=== PATIENT | female | born 1960 | race Caucasian/White ===

== ENCOUNTER → 2016-05-08 | Outpatient (CLI) | payer BC ==
[~2016-05-08] MED LIST: ADAL40KI SC; ASPI81TA28 PO; CHOL100010 PO; CHOL2000 PO; GABA-112 PO; IBUP-1459 PO; MELO7.5T5 PO; PRED1SUS17 OPL; PRED20TA PO; ROSU10TA35 PO; TRAM-10 PO
--- NOTE | 2016-05-08 11:24 | DIAGNOSTIC IMAGING REPORT ---
CT OF THE ABDOMEN AND PELVIS WITH CONTRAST CLINICAL HISTORY: Abnormal liver function tests. Right upper quadrant abdominal pain. COMPARISON STUDY: CT of the abdomen and pelvis August 26, 2010 and abdominal ultrasound April 21, 2015 TECHNIQUE: Following IV administration of 119 mL of Optiray-320, axial images of the abdomen and pelvis were obtained from the lung bases to the proximal femurs. Images were reviewed in the axial, sagittal, and coronal planes. IV contrast was administered without complication. Oral contrast was administered. CT DOSE: 638.49 mGy.cm FINDINGS: A 3 mm right lower lobe nodule is unchanged since CT of October 07, 2008. There is fatty infiltration of the liver. There is no biliary ductal dilatation status post cholecystectomy. The spleen, right adrenal gland and right kidney are unremarkable. A cyst within the upper pole the left kidney is decreased in size. A 1.3 cm left adrenal nodule is unchanged. This represents an adenoma. Caliber and wall thickness of small and large bowel are normal. The appendix is surgically absent. There is no lymphadenopathy or ascites. There is a tiny fat-containing umbilical hernia. No significant skeletal abnormalities are identified. IMPRESSION: 1. No acute process within the abdomen or pelvis. 2. Fatty liver. 3. No biliary ductal dilatation status post cholecystectomy. Electronically signed by: James Fletcher M.D. 05/08/2016 11:22 AM
== END | disposition home or self-care (01) ==
LOC: C.CTS 09:58
PROVIDERS: ATTEND Internal Medicine
DX: R10.11 Right upper quadrant pain (principal); R79.89 Other specified abnormal findings of blood chemistry; K76.0 Fatty (change of) liver, not elsewhere classified

== ENCOUNTER → 2016-08-08 | Outpatient (CLI) | payer BC ==
[~2016-08-08] MED LIST changes: +ROSU10TA24 PO; -ROSU10TA35 PO
[2016-08-08 13:15] LABS: ALKALINE PHOSPHATASE 70 U/L (45-117); ALT/SGPT 68 U/L (12-78); AST/SGOT 36 U/L (15-37); C-REACTIVE PROTEIN 0.58 mg/dl (0-0.29)
== END | disposition home or self-care (01) ==
LOC: C.LAB1850 11:55
PROVIDERS: ATTEND Internal Medicine Rheumatology
DX: M45.9 Ankylosing spondylitis of unspecified sites in spine (principal)

== ENCOUNTER → 2016-08-30 | Outpatient (CLI) | payer BC ==
[2016-08-30 11:32] LABS: CHOLESTEROL/HDL RATIO 7.2; THYROID STIMULATING HORMONE 1.82 uIu/ml (0.300-4.500)
== END | disposition home or self-care (01) ==
LOC: C.LABBC 08:53
PROVIDERS: ATTEND Internal Medicine
DX: E78.5 Hyperlipidemia, unspecified (principal)

== ENCOUNTER → 2016-09-04 | Outpatient (CLI) | payer BC | END | disposition home or self-care (01) | LOC: C.PAPS 11:44 | PROVIDERS: ATTEND Obstetrics & Gynecology | DX: Z01.419 Encounter for gynecological examination (general) (routine) without abnormal findings (principal); Z87.891 Personal history of nicotine dependence ==

== ENCOUNTER 2016-11-16 11:04 | Emergency (ER) | payer BC ==
[~2016-11-16] VITALS: Ht 172.7 cm; Wt 89.5 kg
[~2016-11-16 11:04] MED LIST changes: -ADAL40KI SC; -CHOL2000 PO; -PRED20TA PO; -ROSU10TA24 PO; -TRAM-10 PO
[2016-11-16 11:08] VITALS: TEMP 36.8; Ht 172.7 cm; Wt 89.5 kg
[2016-11-16] MEDS ORDERED: ADAL40KI SC (11:18)
[2016-11-16] MEDS ORDERED: CHOL2000 PO (11:19)
[2016-11-16] MEDS ORDERED: ROSU10TA24 PO (11:20)
[2016-11-16] MEDS ORDERED: HYDROmorphone INJ 0.5 MG/0.5 ML SYR IV STA (11:29)
[2016-11-16] MEDS ORDERED: ONDANSETRON INJ 2 MG/ML 2 ML VIAL IV STA ×2 (11:29→13:05)
[2016-11-16 12:05] LABS: BASO % 0.3 %; BASO ABS # 0.02 K/uL (0-0.2); COMPLETE YES; EOS % 2.6 %; IG% 0.3 %; LYMPH % 26.6 %; LYMPH ABS # 2.05 K/uL (1.2-3.4); MEAN CELL VOLUME 86.4 fL (80-100); MEAN CORPUSCULAR HEMOGLOBIN 28.8 pg (25-34); MEAN CORPUSCULAR HGB CONC 33.3 g/dl (32-36); MONO % 4.8 %; NEUT % 65.4 %; PLATELET COUNT 233 K/uL (130-400); RED BLOOD COUNT 4.86 M/uL (4.2-5.4); WHITE BLOOD COUNT 7.71 K/uL (4.8-10.8)
[2016-11-16 12:30] LABS: ALT/SGPT 45 U/L (12-78); AST/SGOT 20 U/L (15-37); BLOOD UREA NITROGEN 11 mg/dl (7-18); BUN/CREATININE RATIO 19.8 (10-20); CALCIUM 8.7 mg/dl (8.5-10.1); CARBON DIOXIDE 24 mmol/L (21-32); CHLORIDE 108 mmol/L (98-107); CREATININE 0.57 mg/dl (0.60-1.20); GLUCOSE 113 mg/dl (70-99); POTASSIUM 3.8 mmol/L (3.5-5.1); SODIUM 141 mmol/L (136-145); URIC ACID 4.9 mg/dl (2.6-7.2)
[2016-11-16 12:41] LABS: ALKALINE PHOSPHATASE 61 U/L (45-117); RHEUMATOID FACTOR < 10.0 U/mL (0-15)
[2016-11-16 12:43] LABS: ANTI-STREP O SCR: 5YRS OR > POS IU/ml (<200 IU)
--- NOTE | 2016-11-16 12:48 | DIAGNOSTIC IMAGING REPORT ---
C-SPINE ROUTINE 4 OR 5 VIEWS CLINICAL HISTORY: 55 years-old Female presenting with neck pain, no trauma. TECHNIQUE: Frontal, lateral, bilateral oblique, and open-mouth odontoid views of the cervical spine were obtained. COMPARISON: None. FINDINGS: The C6 vertebral body is the last fully visualized level, limiting evaluation. Straightening of normal cervical lordosis, which may be positional. Vertebral body heights and intervertebral disc spaces preserved. Normal predental interval. Lateral masses of C1 articulate normally with C2. No subluxation or acute fracture is radiographically evident. No prevertebral soft tissue swelling. No osseous neural foraminal or spinal canal narrowing. IMPRESSION: 1. No degenerative change or radiographic evidence of acute osseous injury. Electronically signed by: Robbin Chang M.D. 11/16/2016 12:46 PM Dictated Date/Time: 11/16/2016 12:44 PM
--- NOTE | 2016-11-16 12:49 | DIAGNOSTIC IMAGING REPORT ---
CHEST 2 VIEWS ROUTINE CLINICAL HISTORY: neck and shoulder pain pain COMPARISON STUDY: 02/10/2014 FINDINGS: The bones soft tissues and hemidiaphragms are normal. The cardiomediastinal silhouette is normal. The lungs are clear. The pulmonary vasculature is normal. IMPRESSION: Negative chest. Electronically signed by: Myron Chun M.D. 11/16/2016 12:48 PM Dictated Date/Time: 11/16/2016 12:48 PM
--- NOTE | 2016-11-16 12:50 | DIAGNOSTIC IMAGING REPORT ---
RIGHT KNEE 1 OR 2 VIEWS ROUTINE CLINICAL HISTORY: right knee swelling and pain, no trauma Right pain COMPARISON: None. DISCUSSION: The bones and joint spaces appear intact. There is no evidence of fracture, dislocation or bony disease. Degenerative osteophytic change from the superior patella rib no significant joint effusion IMPRESSION: Mild degenerative osteophytic change. Otherwise negative study. No acute process. Electronically signed by: Myron Chun M.D. 11/16/2016 12:49 PM Dictated Date/Time: 11/16/2016 12:48 PM
[2016-11-16] MEDS ORDERED: FENTANYL CITRATE INJ 50 MCG/1 ML 2 ML VIAL IV STA (13:05)
[2016-11-16] MEDS ORDERED: KETOROLAC TROMETHAMINE 30 MG/ML VIAL IV STA (13:05)
[2016-11-16 13:33] LABS: LYME DISEASE AB IGG NEG (NEG)
[2016-11-16 13:35] LABS: LYME DISEASE AB IGM NEG (NEG)
[2016-11-16 14:12] LABS: ANTI-STREP O TITRE: 5YR OR > 400 IU/ml (<200 IU)
[2016-11-16] MEDS ORDERED: TRAM-10 PO (14:43)
[2016-11-16] MEDS ORDERED: PRED20TA PO ×2 (14:43→14:47)
[2016-11-16 15:17] VITALS: BP 102/58; PULSE 79; O2SAT 99
--- NOTE | 2016-11-16 15:54 | EMERGENCY ROOM VISIT NOTE ---
History Report prepared by Bo: Antonio Oconnor Under the Supervision of: Dr. Mehrdad Badillo M.D. First contact with patient: 11:15 Chief Complaint: KNEEPAIN Stated Complaint: SWELLING/PAIN TO R KNEE, NECK,ARMS,FEET,BACK,LEGS History of Present Illness The patient is a 55 year old female who presents to the Emergency Room with complaints of worsening generalized pain that started last week. She rates her discomfort as a 7/10 in severity. She states that her symptoms started last week when she started to experience pain in her upper arm radiating to her shoulders, neck, and back. The patient reports that the pain is so severe that she is unable to lift her arms causing her to not be able to hold the top of the steering wheel. She also reports she has been experiencing increased foot ankle pain. The patient reports a history of ankylosis spondylitis and neuropathy, which she states usually only causes lower back pain. The patient states that she has a history of carpal tunnel, which has been flaring up due to her increased work load at work. She reports knee pain, which she follows up with Dr. Hancock for, which worsened last night. The patient states that the swelling and pain caused her to call Dr. Hancock yesterday when she told the patient to increase her Ibuprofen intake. The patient states that the increased Ibuprofen, which she took three this morning at 0800, and Humira has helped relieve some symptoms. She admits that she has had steroid shots for her knee issues in the past, but has not had any for months. She states that she has an appointment today later today at [address] Zendejas. The patient admits to a history of an appendectomy and cholecystectomy. The patient denies any injury , falling, LOC, headache, fevers, chills, diaphoresis, visual changes, chest pain, breathing difficulties, nausea, vomiting, abdominal pain, melena, hematochezia, urinary symptoms, numbness, weakness, lymphadenopathy, rash, or other complaints. Source of History: patient Onset: a week ago Position: other (global) Symptom Intensity: 7/10 Timing: worsening Modifying Factors (Relieving): ibuprofen, other (Humira) Associated Symptoms: + neck pain, + back pain Review of Systems See HPI for pertinent positives and negatives. A total of ten systems were reviewed and were otherwise negative. Past Medical & Surgical Medical Problems: (1) Asthma, Unspecified (2) Hyperlipidemia Nec/Nos Surgical Problems: (1) Hx of appendectomy (2) Hx of cholecystectomy Family History Cancer Diabetes mellitus Gallbladder disease Heart disease Hypertension Kidney disease Kidney stones Stroke Social History Smoking Status: Former Smoker Smokeless Tobacco Use: No Alcohol Use: none Drug Use: none Marital Status: in relationship Housing Status: lives with significant other Occupation Status: employed Current/Historical Medications Scheduled Adalimumab (Humira Pen), 40 MG SC Q14D Cholecalciferol (Vitamin D3), 1 CAP PO DAILY Prednisone (Prednisone), 20 MG PO DAILY Rosuvastatin Calcium (Rosuvastatin Calcium), 1 TAB PO HS Scheduled PRN Ibuprofen (Motrin), 400 MG PO DIRECTED PRN for Pain Tramadol (Ultram), 1-2 TAB PO Q6 PRN for Pain Allergies Coded Allergies: Diphenhydramine (Unverified Allergy, Unknown, ITCHING, 11/16/16) Physical Exam Vital Signs Date Time Temp Pulse Resp B/P (MAP) Pulse Ox O2 Delivery O2 Flow Rate FiO2 11/16/16 15:17 79 16 102/58 99 11/16/16 14:28 80 20 103/54 95 Room Air 11/16/16 13:07 86 20 129/87 94 Room Air 11/16/16 12:46 82 11/16/16 11:08 36.8 110 17 123/86 99 Room Air Physical Exam GENERAL: Awake, alert, well-appearing, in no distress HENT: Normocephalic, atraumatic. Oropharynx unremarkable. EYES: Normal conjunctiva. Sclera non-icteric. NECK: Supple. No nuchal rigidity. FROM. No JVD. RESPIRATORY: Clear to auscultation. CARDIAC: Regular rate, normal rhythm. Extremities warm and well perfused. Pulses equal. ABDOMEN: Soft, non-distended. No tenderness to palpation. No rebound or guarding. No masses. RECTAL: Deferred. MUSCULOSKELETAL: Chest examination reveals no tenderness. The back is symmetrical on inspection without obvious abnormality. There is no CVA tenderness to palpation. No joint edema. LOWER EXTREMITIES: Swelling to superior, lateral aspect of right knee. Range of motion is limited secondary to pain. No erythema or warmth. MCL and LCL are normal. Negative Yajaira. Calves are equal size bilaterally and non-tender. No edema. No discoloration. NEURO: Normal sensorium. No sensory or motor deficits noted. SKIN: No rash or jaundice noted. Medical Decision & Procedures ER Provider Diagnostic Interpretation: Radiology results as stated below per my review and radiologist interpretation: RIGHT KNEE 1 OR 2 VIEWS ROUTINE CLINICAL HISTORY: right knee swelling and pain, no trauma Right pain COMPARISON: None. DISCUSSION: The bones and joint spaces appear intact. There is no evidence of fracture, dislocation or bony disease. Degenerative osteophytic change from the superior patella rib no significant joint effusion IMPRESSION: Mild degenerative osteophytic change. Otherwise negative study. No acute process. Electronically signed by: Myron Chun M.D. 11/16/2016 12:49 PM Dictated Date/Time: 11/16/2016 12:48 PM CHEST 2 VIEWS ROUTINE CLINICAL HISTORY: neck and shoulder pain pain COMPARISON STUDY: 02/10/2014 FINDINGS: The bones soft tissues and hemidiaphragms are normal. The cardiomediastinal silhouette is normal. The lungs are clear. The pulmonary vasculature is normal. IMPRESSION: Negative chest. Electronically signed by: Myron Chun M.D. 11/16/2016 12:48 PM Dictated Date/Time: 11/16/2016 12:48 PM C-SPINE ROUTINE 4 OR 5 VIEWS CLINICAL HISTORY: 55 years-old Female presenting with neck pain, no trauma. TECHNIQUE: Frontal, lateral, bilateral oblique, and open-mouth odontoid views of the cervical spine were obtained. COMPARISON: None. FINDINGS: The C6 vertebral body is the last fully visualized level, limiting evaluation. Straightening of normal cervical lordosis, which may be positional. Vertebral body heights and intervertebral disc spaces preserved. Normal predental interval. Lateral masses of C1 articulate normally with C2. No subluxation or acute fracture is radiographically evident. No prevertebral soft tissue swelling. No osseous neural foraminal or spinal canal narrowing. IMPRESSION: 1. No degenerative change or radiographic evidence of acute osseous injury. Electronically signed by: Robbin Chang M.D. 11/16/2016 12:46 PM Dictated Date/Time: 11/16/2016 12:44 PM Laboratory Results 11/16/16 11:48 Red Blood Count 4.86, Mean Corpuscular Volume 86.4, Mean Corpuscular Hemoglobin 28.8, Mean Corpuscular Hemoglobin Concent 33.3, Mean Platelet Volume 9.0, Neutrophils (%) (Auto) 65.4, Lymphocytes (%) (Auto) 26.6, Monocytes (%) (Auto) 4.8, Eosinophils (%) (Auto) 2.6, Basophils (%) (Auto) 0.3, Neutrophils # (Auto) 5.05, Lymphocytes # (Auto) 2.05, Monocytes # (Auto) 0.37, Eosinophils # (Auto) 0.20, Basophils # (Auto) 0.02 11/16/16 11:48 Test 11/16/16 11:48 White Blood Count 7.71 K/uL (4.8-10.8) Red Blood Count 4.86 M/uL (4.2-5.4) Hemoglobin 14.0 g/dL (12.0-16.0) Hematocrit 42.0 % (37-47) Mean Corpuscular Volume 86.4 fL (80-100) Mean Corpuscular Hemoglobin 28.8 pg (25-34) Mean Corpuscular Hemoglobin Concent 33.3 g/dl (32-36) Platelet Count 233 K/uL (130-400) Mean Platelet Volume 9.0 fL (7.4-10.4) Neutrophils (%) (Auto) 65.4 % Lymphocytes (%) (Auto) 26.6 % Monocytes (%) (Auto) 4.8 % Eosinophils (%) (Auto) 2.6 % Basophils (%) (Auto) 0.3 % Neutrophils # (Auto) 5.05 K/uL (1.4-6.5) Lymphocytes # (Auto) 2.05 K/uL (1.2-3.4) Monocytes # (Auto) 0.37 K/uL (0.11-0.59) Eosinophils # (Auto) 0.20 K/uL (0-0.5) Basophils # (Auto) 0.02 K/uL (0-0.2) RDW Standard Deviation 42.1 fL (36.4-46.3) RDW Coefficient of Variation 13.2 % (11.5-14.5) Immature Granulocyte % (Auto) 0.3 % Immature Granulocyte # (Auto) 0.02 K/uL (0.00-0.02) Erythrocyte Sedimentation Rate 21 mm/hr (0-21) Anion Gap 9.0 mmol/L (3-11) Est Creatinine Clear Calc Drug Dose 133.6 ml/min Estimated GFR () 122.7 Estimated GFR (Non- 105.8 BUN/Creatinine Ratio 19.8 (10-20) Uric Acid 4.9 mg/dl (2.6-7.2) Calcium Level 8.7 mg/dl (8.5-10.1) Total Bilirubin 0.5 mg/dl (0.2-1) Direct Bilirubin 0.1 mg/dl (0-0.2) Aspartate Amino Transf (AST/SGOT) 20 U/L (15-37) Alanine Aminotransferase (ALT/SGPT) 45 U/L (12-78) Alkaline Phosphatase 61 U/L (45-117) C-Reactive Protein 3.00 mg/dl (0-0.29) Total Protein 7.3 gm/dl (6.4-8.2) Albumin 3.6 gm/dl (3.4-5.0) Thyroid Stimulating Hormone (TSH) 1.190 uIu/ml (0.300-4.500) Rheumatoid Factor < 10.0 U/mL (0-15) Lyme Disease IgG Antibody NEG (NEG) Lyme Disease IgM Antibody NEG (NEG) Anti-Streptolysin O Antibody Screen POS IU/ml (<200 IU) Anti-Streptolysin O Antibody Titer 400 IU/ml (<200 IU) Laboratory results reviewed by me Medications Administered Medications (Trade) Dose Ordered Sig/Jackie Route Start Time Stop Time Status Last Admin Dose Admin Hydromorphone HCl (Dilaudid Inj) 0.5 mg NOW STAT IV 11/16/16 11:29 11/16/16 11:30 DC 11/16/16 12:00 0.5 MG Ondansetron HCl (Zofran Inj) 4 mg NOW STAT IV 11/16/16 11:29 11/16/16 11:30 DC 11/16/16 11:59 4 MG Ketorolac Tromethamine (Toradol Inj) 30 mg NOW STAT IV 11/16/16 13:05 11/16/16 13:07 DC 11/16/16 13:25 30 MG Fentanyl Citrate (Fentanyl Inj) 50 mcg NOW STAT IV 11/16/16 13:05 11/16/16 13:07 DC 11/16/16 13:24 50 MCG Ondansetron HCl (Zofran Inj) 4 mg NOW STAT IV 11/16/16 13:05 11/16/16 13:07 DC 11/16/16 13:24 4 MG Prednisone (PredniSONE TAB) 20 mg NOW STAT PO 11/16/16 14:40 11/16/16 14:41 DC 11/16/16 14:50 20 MG ED Course 1115: The patient was evaluated in room C09. A complete history and physical exam was performed. 1129: Zofran Injection 4 mg IV, Dilaudid Injection 0.5 mg IV. 1305: Zofran Injection 4 mg IV, Fentanyl Injection 50 mcg IV, Toradol Injection 30 mg IV. 1357: I reevaluated the patient and she is doing well. I gave her additional medication. 1430: I reevaluated the patient and she is feeling better. I discussed prescription management and talked about a follow up with her PCP. Discussed results and discharge instructions: She verbalized understanding and agreement. The patient is ready for discharge. Medical Decision Medication Reconciliation: I attest that I have personally reviewed the patient' s current medication list Patient was found to have a slightly elevated blood pressure due to circumstances. I do not believe that the patient requires hypertension monitoring. Triage Nursing notes reviewed. The patient's presentation and history were concerning for joint swelling and pain. Etiologies such as polyarthritis, reactive arthritis, Lyme disease, joint effusion, infection, trauma, muscular, idiopathic, DVT,as well as others were entertained. The patient was evaluated. Clinically she is relatively well. She had some mild fluid on the right knee but there is no sign of infection. It was not warm and was not hot. She tenderness. Her Was soft. She had no lower leg edema. She noted some discomfort in her shoulders and her neck. She has a history of ALS. The patient underwent x-ray imaging of the neck, chest, and knee. These were unremarkable for any acute findings. The patient had an unremarkable CBC, ESR, Lyme titer and uric acid. Her CRP was minimally elevated. ASO was mildly elevated as well. She denies any recent infectious symptoms or viral illnesses. I currently cannot find any evidence of infectious issues at this time. The patient was initially given a small dose of Dilaudid and Zofran and she noted some GI distress with this. She was uncomfortable. She was given a dose of Zofran, fentanyl, and Toradol. This worked much better and she was significantly much more comfortable. Her GI distress resolved. The patient's knee felt much better. This seems to be a noninfectious arthritis at this time. She has minimal fluid in the knee and aspiration appeared to be warranted. I did discuss this with her. I think it is reasonable to try a low dose prednisone and pain medication. She wanted a small amount of pain medicine and I discussed the options. She was okay with tramadol. She is not a big fan of medications. 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 I believe she needs to follow up closely with them. If she worsens in any way she will come back to the emergency from for reevaluation. I did spend a significant amount of time talking to her about this.I gave my usual and customary discussion regarding this issue. By the evaluation outlined above other emergent etiologies such as those listed in the differential, as well as others, were deemed relatively unlikely. The patient was educated about the findings as listed above. All questions were answered and the patient was pleased with the treatment. Return instructions were outlined and the patient was discharged in stable condition. The patient was referred to her horizontal resaw operator for follow-up for a recheck of the current condition. Impression Primary Impression: Arthritis of right knee Additional Impressions: Bilateral shoulder pain Neck pain Scribe Attestation The scribe's documentation has been prepared under my direction and personally reviewed by me in its entirety. I confirm that the note above accurately reflects all work, treatment, procedures, and medical decision making performed by me. Departure Information Dispostion Home / Self-Care Prescriptions Prednisone (Prednisone) 20 Mg Tab 20 MG PO DAILY for 4 Days, #4 TAB Prov: Mehrdad Badillo MD 11/16/16 Tramadol (Ultram) 50 Mg Tab 1-2 TAB PO Q6 Y for Pain, #14 TAB Prov: Mehrdad Badillo MD 11/16/16 Referrals Robbin Zendejas M.D. (PCP) Forms HOME CARE DOCUMENTATION FORM, IMPORTANT VISIT INFORMATION Patient Instructions My [facility] Additional Instructions Prednisone 20 mg: Once daily until the prescription is finished. Tramadol 50 mg: Take 1-2 pills every four hours as needed for breakthrough pain. Avoid alcohol, operating machinery or dangerous equipment, working on ladders or roofs, DRIVING, or situations where being under the influence may be dangerous. Patricio wrap as needed for swelling. Elevate the leg. Ice compresses for 20 minutes at a time four times daily for 2-3 days. Review the package insert for all your medications. This is necessary as important health information is provided for your benefit and current care. Continue current medications. Return to the ER immediately for spreading redness, fevers, severe pain, extreme swelling, or as needed. Follow-up with your horizontal resaw operator office tomorrow for an appointment. Problem Qualifiers
== END 2016-11-16 14:58 | disposition home or self-care (01) ==
LOC: C.EDB 11:05 → C.EDC 14:58
DX: M17.9 Osteoarthritis of knee, unspecified (principal); M25.511 Pain in right shoulder; M25.512 Pain in left shoulder; M54.2 Cervicalgia; E78.5 Hyperlipidemia, unspecified; J45.909 Unspecified asthma, uncomplicated; Z90.49 Acquired absence of other specified parts of digestive tract; Z98.890 Other specified postprocedural states; Z87.891 Personal history of nicotine dependence; Z88.8 Allergy status to other drugs, medicaments and biological substances; Z80.9 Family history of malignant neoplasm, unspecified; Z83.3 Family history of diabetes mellitus; Z83.79 Family history of other diseases of the digestive system; Z82.49 Family history of ischemic heart disease and other diseases of the circulatory system; Z84.1 Family history of disorders of kidney and ureter; Z82.0 Family history of epilepsy and other diseases of the nervous system

== ENCOUNTER → 2016-11-20 | Outpatient (CLI) | payer BC ==
[~2016-11-20] MED LIST changes: +ADAL40KI SC; -ASPI81TA28 PO; -CHOL100010 PO; +CHOL2000 PO; -GABA-112 PO; -MELO7.5T5 PO; -PRED1SUS17 OPL; +PRED20TA PO; +ROSU10TA24 PO; +TRAM-10 PO
[2016-11-20 17:52] LABS: ALT/SGPT 48 U/L (12-78); BLOOD UREA NITROGEN 18 mg/dl (7-18); BUN/CREATININE RATIO 26.4 (10-20); CALCIUM 9.7 mg/dl (8.5-10.1); CARBON DIOXIDE 23 mmol/L (21-32); CHLORIDE 105 mmol/L (98-107); CHOLESTEROL 176 mg/dl (0-200); CREATININE 0.69 mg/dl (0.60-1.20); GLUCOSE 137 mg/dl (70-99); POTASSIUM 4.2 mmol/L (3.5-5.1); SODIUM 137 mmol/L (136-145)
[2016-11-20 17:55] LABS: ALB/GLOB RATIO 0.9 (0.9-2); ALKALINE PHOSPHATASE 59 U/L (45-117); AST/SGOT 23 U/L (15-37); CHOLESTEROL/HDL RATIO 3.9; HDL CHOLESTEROL 45 mg/dl; LDL CHOLESTEROL CALCULATED 105 mg/dl; TRIGLYCERIDES 131 mg/dl (0-150); VERY LOW DENSITY LIPOPROT CALC 26 mg/dl
== END | disposition home or self-care (01) ==
LOC: C.LABPBG 12:05
PROVIDERS: ATTEND Internal Medicine
DX: E78.5 Hyperlipidemia, unspecified (principal); M79.1 Myalgia; M25.569 Pain in unspecified knee

== ENCOUNTER → 2016-11-28 | Outpatient (CLI) | payer BC ==
[~2016-11-28] MED LIST changes: -PRED20TA PO
[2016-11-28 19:20] LABS: LYME DISEASE AB IGG NEG (NEG)
[2016-11-28 19:21] LABS: LYME DISEASE AB IGM NEG (NEG)
[2016-12-02 20:48] LABS: COXSACKIE B1 <1:8 (<1:8); COXSACKIE B2 <1:8 (<1:8); COXSACKIE B3 <1:8 (<1:8); COXSACKIE B4 <1:8 (<1:8); COXSACKIE B5 1:16 (<1:8); CYTOMEGALOVIRUS IGG AB <0.60 U/ML; EPSTEIN BARR VIR CAPSID IGG >750.00 U/ML; PARVOVIRUS IgG INDEX 0.3 (<0.9); PARVOVIRUS IgM INDEX 0.2 (<0.9)
== END | disposition home or self-care (01) ==
LOC: C.LAB1850 16:25
PROVIDERS: ATTEND Physician Assistant
DX: M06.4 Inflammatory polyarthropathy (principal)

== ENCOUNTER → 2016-12-05 | Outpatient (CLI) | payer BC ==
[2016-12-05 12:20] LABS: BASO % 0.2 %; BASO ABS # 0.03 K/uL (0-0.2); COMPLETE YES; HEMATOCRIT 40.2 % (37-47); IG% 0.2 %; LYMPH % 18.5 %; LYMPH ABS # 2.28 K/uL (1.2-3.4); MEAN CELL VOLUME 87.2 fL (80-100); MEAN CORPUSCULAR HEMOGLOBIN 29.3 pg (25-34); MEAN CORPUSCULAR HGB CONC 33.6 g/dl (32-36); MEAN PLATELET VOLUME 10.1 fL (7.4-10.4); MONO % 3.4 %; NEUT % 76.7 %; PLATELET COUNT 272 K/uL (130-400); RED BLOOD COUNT 4.61 M/uL (4.2-5.4); WHITE BLOOD COUNT 12.35 K/uL (4.8-10.8)
[2016-12-05 17:59] LABS: ALT/SGPT 44 U/L (12-78); AST/SGOT 20 U/L (15-37); CREATININE 0.84 mg/dl (0.60-1.20)
[2016-12-05 18:01] LABS: ALKALINE PHOSPHATASE 67 U/L (45-117)
== END | disposition home or self-care (01) ==
LOC: C.LAB1850 09:43
PROVIDERS: ATTEND Internal Medicine Rheumatology
DX: H20.029 Recurrent acute iridocyclitis, unspecified eye (principal); M54.5 Low back pain; M45.9 Ankylosing spondylitis of unspecified sites in spine; Z79.899 Other long term (current) drug therapy

== ENCOUNTER → 2016-12-27 | Outpatient (CLI) | payer BC ==
[2016-12-27 17:34] LABS: BASO % 0.2 %; BASO ABS # 0.02 K/uL (0-0.2); COMPLETE YES; EOS % 0.3 %; HEMATOCRIT 41.3 % (37-47); IG% 0.3 %; LYMPH % 14.4 %; LYMPH ABS # 1.68 K/uL (1.2-3.4); MEAN CELL VOLUME 88.6 fL (80-100); MEAN CORPUSCULAR HEMOGLOBIN 29.4 pg (25-34); MEAN CORPUSCULAR HGB CONC 33.2 g/dl (32-36); MEAN PLATELET VOLUME 9.4 fL (7.4-10.4); MONO % 1.4 %; NEUT % 83.4 %; PLATELET COUNT 258 K/uL (130-400); RED BLOOD COUNT 4.66 M/uL (4.2-5.4); WHITE BLOOD COUNT 11.63 K/uL (4.8-10.8)
[2016-12-27 17:46] LABS: ALT/SGPT 46 U/L (12-78); AST/SGOT 15 U/L (15-37)
[2016-12-27 17:48] LABS: ALKALINE PHOSPHATASE 50 U/L (45-117)
[2016-12-27 17:57] LABS: URINE APPEARANCE CLEAR (CLEAR); URINE BILIRUBIN NEG (NEG); URINE COLOR YELLOW; URINE EPITHELIAL CELL AUTO 0-5 /lpf (0-5); URINE NITRITE NEG (NEG); URINE PH 5.5 (4.5-7.5); URINE SPECIFIC GRAVITY 1.013 (1.000-1.030); UROBILINOGEN NEG (NEG)
[2016-12-27 18:08] LABS: MANUAL MICROSCOPIC REQUIRED? NO; REVIEW REQ? NO
[2017-01-05 12:40] LABS: ANTI-CENTROMERE AB <1.0 NEG AI (<1.0 NEG); ANTI-SS-A <1.0 NEG AI (<1.0 NEG); ANTI-SS-B <1.0 NEG AI (<1.0 NEG); DNA ds CRITHIDIA NEGATIVE (NEGATIVE); MYELOPEROXIDASE AB <1.0 AI (<1.0); Sm Antibody <1.0 NEG AI (<1.0 NEG)
== END | disposition home or self-care (01) ==
LOC: C.LABPBG 11:21
PROVIDERS: ATTEND Internal Medicine Rheumatology
DX: K21.9 Gastro-esophageal reflux disease without esophagitis (principal); M45.9 Ankylosing spondylitis of unspecified sites in spine; B34.3 Parvovirus infection, unspecified

== ENCOUNTER → 2017-01-12 | Outpatient (CLI) | payer BC | END | disposition home or self-care (01) | LOC: C.LABPBG 10:50 | PROVIDERS: ATTEND Internal Medicine Rheumatology | DX: K21.9 Gastro-esophageal reflux disease without esophagitis (principal); M45.9 Ankylosing spondylitis of unspecified sites in spine; B34.3 Parvovirus infection, unspecified; Z79.899 Other long term (current) drug therapy ==

== ENCOUNTER → 2017-01-19 | Outpatient (CLI) | payer BC ==
[2017-01-19 17:38] LABS: BASO % 0.1 %; BASO ABS # 0.01 K/uL (0-0.2); COMPLETE YES; EOS % 0.1 %; IG% 0.5 %; LYMPH % 14.1 %; LYMPH ABS # 1.94 K/uL (1.2-3.4); MEAN CELL VOLUME 88.9 fL (80-100); MEAN CORPUSCULAR HEMOGLOBIN 29.3 pg (25-34); MEAN PLATELET VOLUME 9.2 fL (7.4-10.4); MONO % 2.9 %; NEUT % 82.3 %; PLATELET COUNT 294 K/uL (130-400); RED BLOOD COUNT 4.95 M/uL (4.2-5.4); WHITE BLOOD COUNT 13.78 K/uL (4.8-10.8)
[2017-01-19 18:08] LABS: ALT/SGPT 48 U/L (12-78); AST/SGOT 12 U/L (15-37)
[2017-01-19 18:09] LABS: ALKALINE PHOSPHATASE 44 U/L (45-117)
== END | disposition home or self-care (01) ==
LOC: C.LAB1850 15:23
PROVIDERS: ATTEND Internal Medicine Rheumatology
DX: M45.9 Ankylosing spondylitis of unspecified sites in spine (principal); Z79.899 Other long term (current) drug therapy; B34.3 Parvovirus infection, unspecified; R01.1 Cardiac murmur, unspecified; Z79.1 Long term (current) use of non-steroidal anti-inflammatories (NSAID); M13.0 Polyarthritis, unspecified

== ENCOUNTER → 2017-03-22 | Outpatient (CLI) | payer BC ==
[2017-03-22 17:36] LABS: BASO % 0.2 %; BASO ABS # 0.02 K/uL (0-0.2); COMPLETE YES; EOS % 0.2 %; HEMATOCRIT 40.7 % (37-47); IG% 0.3 %; LYMPH % 16.2 %; LYMPH ABS # 1.98 K/uL (1.2-3.4); MEAN CELL VOLUME 92.5 fL (80-100); MEAN CORPUSCULAR HEMOGLOBIN 30.2 pg (25-34); MEAN CORPUSCULAR HGB CONC 32.7 g/dl (32-36); MEAN PLATELET VOLUME 9.8 fL (7.4-10.4); MONO % 2.5 %; NEUT % 80.6 %; PLATELET COUNT 246 K/uL (130-400); WHITE BLOOD COUNT 12.23 K/uL (4.8-10.8)
[2017-03-22 18:36] LABS: CREATININE 0.79 mg/dl (0.60-1.20)
== END | disposition home or self-care (01) ==
LOC: C.LABPBG 14:19
PROVIDERS: ATTEND Internal Medicine Rheumatology
DX: M45.9 Ankylosing spondylitis of unspecified sites in spine (principal); Z79.899 Other long term (current) drug therapy; Z79.1 Long term (current) use of non-steroidal anti-inflammatories (NSAID); Z79.52 Long term (current) use of systemic steroids

== ENCOUNTER → 2017-05-29 | Outpatient (CLI) | payer BC ==
[~2017-05-29] MED LIST changes: -ROSU10TA24 PO; +ROSU10TA35 PO
[2017-05-29 12:48] LABS: HEMATOCRIT 44.3 % (37-47); HEMOGLOBIN 14.7 g/dL (12.0-16.0); MEAN CELL VOLUME 91.3 fL (80-100); MEAN CORPUSCULAR HEMOGLOBIN 30.3 pg (25-34); MEAN CORPUSCULAR HGB CONC 33.2 g/dl (32-36); MEAN PLATELET VOLUME 10.2 fL (7.4-10.4); PLATELET COUNT 297 K/uL (130-400); RED CELL DISTRIBUTION WIDTH CV 13.9 % (11.5-14.5); RED CELL DISTRIBUTION WIDTH SD 46.4 fL (36.4-46.3)
[2017-05-29 13:40] LABS: BASO % 0.3 %; BASO ABS # 0.03 K/uL (0-0.2); EOS % 2.5 %; EOS ABS # 0.28 K/uL (0-0.5); IG# 0.02 K/uL (0.00-0.02); LYMPH % 47.1 %; LYMPH ABS # 5.18 K/uL (1.2-3.4); MONO % 5.5 %; NEUT % 44.4 %; NEUT ABS # 4.89 K/uL (1.4-6.5)
[2017-05-29 14:04] LABS: ALBUMIN 3.9 gm/dl (3.4-5.0); ALKALINE PHOSPHATASE 49 U/L (45-117); ALT/SGPT 69 U/L (12-78); AST/SGOT 33 U/L (15-37); TOTAL PROTEIN 7.2 gm/dl (6.4-8.2)
== END | disposition home or self-care (01) ==
LOC: C.LABPBG 08:32
PROVIDERS: ATTEND Internal Medicine Rheumatology
DX: M45.9 Ankylosing spondylitis of unspecified sites in spine (principal); Z79.899 Other long term (current) drug therapy; B34.3 Parvovirus infection, unspecified; M25.531 Pain in right wrist; B19.9 Unspecified viral hepatitis without hepatic coma

== ENCOUNTER → 2017-06-04 | Outpatient (CLI) | payer BC ==
--- NOTE | 2017-06-04 12:46 | DIAGNOSTIC IMAGING REPORT ---
L-SPINE MIN 4 VIEWS ROUTINE CLINICAL HISTORY: Lower back pain. General ill feeling. COMPARISON: None FINDINGS: Incidental note is made of cholecystectomy clips. There is mild dextroscoliosis of the lumbar spine. No fracture or suspicious lesion is present. There is mild to moderate disc space narrowing at L5-S1 with osteophytosis. There is also mild disc space narrowing at L3-L4. Sacroiliac joints are intact. No erosions are identified. IMPRESSION: 1. No acute lumbar spine fracture or subluxation. 2. Mild dextroscoliosis of the lumbar spine. 3. Mild to moderate multilevel degenerative disc disease and facet arthrosis. Electronically signed by: James Fletcher M.D. 06/04/2017 12:45 PM Dictated Date/Time: 06/04/2017 12:42 PM
== END | disposition home or self-care (01) ==
LOC: C.RAD1850 12:06
PROVIDERS: ATTEND Internal Medicine Rheumatology
DX: R68.89 Other general symptoms and signs (principal)

== ENCOUNTER → 2017-12-20 | Outpatient (CLI) | payer BC ==
[~2017-12-20] MED LIST changes: +ROSU10TA26 PO; -ROSU10TA35 PO
[2017-12-20 16:58] LABS: BASO % 0.5 %; BASO ABS # 0.04 K/uL (0-0.2); EOS % 1.1 %; HEMATOCRIT 41.2 % (37-47); HEMOGLOBIN 13.7 g/dL (12.0-16.0); IG# 0.02 K/uL (0.00-0.02); LYMPH % 16.1 %; LYMPH ABS # 1.42 K/uL (1.2-3.4); MEAN CORPUSCULAR HEMOGLOBIN 29.3 pg (25-34); MEAN CORPUSCULAR HGB CONC 33.3 g/dl (32-36); MEAN PLATELET VOLUME 10.3 fL (7.4-10.4); MONO % 2.8 %; MONO ABS # 0.25 K/uL (0.11-0.59); NEUT % 79.3 %; NEUT ABS # 6.97 K/uL (1.4-6.5); PLATELET COUNT 261 K/uL (130-400); RED CELL DISTRIBUTION WIDTH CV 15.1 % (11.5-14.5)
[2017-12-20 17:17] LABS: ALBUMIN 3.7 gm/dl (3.4-5.0); ALKALINE PHOSPHATASE 64 U/L (45-117); ALT/SGPT 54 U/L (12-78); AST/SGOT 32 U/L (15-37); CREATININE 0.62 mg/dl (0.60-1.20); TOTAL PROTEIN 7.3 gm/dl (6.4-8.2)
== END | disposition home or self-care (01) ==
LOC: C.LABPBG 11:39
PROVIDERS: ATTEND Internal Medicine Rheumatology
DX: K21.9 Gastro-esophageal reflux disease without esophagitis (principal); M53.3 Sacrococcygeal disorders, not elsewhere classified; M45.9 Ankylosing spondylitis of unspecified sites in spine; Z79.899 Other long term (current) drug therapy

== ENCOUNTER → 2017-12-21 | Outpatient (CLI) | payer BC ==
--- NOTE | 2017-12-21 08:22 | DIAGNOSTIC IMAGING REPORT ---
LUMBAR SPINE 5 VIEWS HISTORY: Low back pain. STEROID INDUCTED OSTEOPOROSIS COMPARISON: L spine 06/04/2017. FINDINGS: There is no fracture. No subluxation. The sacrum appears intact. Mild dextroscoliosis, unchanged. Cholecystectomy. Mild facet degenerative changes within the lower lumbar spine. Small and plate osteophytes. Mild disc space narrowing at L3-L4 and L5-S1. IMPRESSION: No fracture or subluxation within the lumbar spine. Degenerative changes and scoliosis as described above. Electronically signed by: Hang Llanes M.D. 12/21/2017 8:21 AM Dictated Date/Time: 12/21/2017 8:19 AM
== END | disposition home or self-care (01) ==
LOC: C.RAD 07:44
PROVIDERS: ATTEND Internal Medicine Rheumatology
DX: E55.9 Vitamin D deficiency, unspecified (principal); M81.8 Other osteoporosis without current pathological fracture

== ENCOUNTER 2024-01-17 08:07 | Observation (INO) ==
--- NOTE | 2024-01-17 08:34 | Emergency Department Note ---
Impression & Plan Facial paresthesia, Paresthesia of left foot ED Provider Note Name: KITA PEDROZA Age: 63 Sex: Female Arrives Via: Walk-In Informant: Patient ED Provider: Harvinder Singh MD Chief Complaint: Facial paresthesias Impression: As per impressions above Medical Decision Makin-year-old female history of type 2 diabetes, dyslipidemia and previous smoker who has family history of CAD/CVA arrives for evaluation of 12+ hours of left facial paresthesia is intermittent with left leg paresthesias. Neuro intact with NIH of 0 on arrival. Not a tPA candidate. Does not have findings of large vessel occlusion. A CT of the head and angiography of head and neck are fortunately unremarkable. Laboratory workup is benign. Given she is at high risk and her findings hospitalization is indicated for further workup. I discussed with hospitalist and they will bring in for further management. Patient is comfortable with this plan and understands Triage/Nursing Notes reviewed by Me Differential:Stroke, peripheral nerve inflammatory condition, viral infection, anxiety, TIA, dissection, aneurysm, intracranial hemorrhage/mass, many other pathologies considered Vital Signs: reviewed and remarkable for no significant abnormalities Interventions: Aspirin 324 mg p.o. Labs:ED labs Reviewed by me and remarkable for no significant abnormalities Imaging:CT of the head without contrast as per my informal interpretation no intracranial hemorrhage or mass effect appreciated. Confirmed with radiologist. CT of the head and neck angiography per radiologist no acute findings. EKG:As per my interpretation. Indication strokelike symptoms. Normal sinus rhythm at 94 bpm QTc of 427. There is no ectopy or nor ischemia. No previous for comparison. Cardiac/Tele Monitoring: Cardiac Monitoring: An Order was placed for continuous cardiac monitoring. The monitor shows a rate of 80 with a normal sinus rhythm. Consults:Discussed with Dr. Willis of the [facility] who will bring in for further management. Plan: Disposition:Hospitalization. Condition: Good History of Present Illness: 63-year-old female arrives for evaluation of left facial paresthesias. Patient notes about 12 hours of gradually worsening left facial paresthesia. It slightly gotten better this morning before getting worse again. She notes that last evening she even had tingling in her left leg and her foot felt somewhat numb. She is unsure whether her left arm was having the tingling as well. She denies any specific weakness but states she was feel like she could not walk straight earlier. She had no difficulty driving this morning. Denies any specific headache, neck pain, chest pain, shortness of breath, palpitations, tachycardia, near syncope or other concerning signs or symptoms. Patient with a history of diabetes, dyslipidemia, smoking (quit). She also has a history of family with both strokes and cardiac disease. Patient did take two 81 mg aspirin tablets last night Past Medical History:See Below Home Medications:See Below Allergies:benadryl Vitals:Blood Pressure: 158/103, Pulse 76, RR 20, T 36.7C, O2 97% on RA Physical Exam: GENERAL: Patient is anxious appearing and in minimal distress. RESPIRATORY: No dyspnea. Clear to auscultation and equal bilaterally. CARDIOVASCULAR: Regular rate and rhythm.No murmur appreciated. GASTROINTESTINAL: Abdomen soft, non-tender, no peritonitis. EXTREMITIES: Normal motion all extremities, no cyanosis, no edema. NEUROLOGIC: Alert and oriented. No focal neurologic deficits appreciated SKIN: No rash, no jaundice, no diaphoresis. PSYCH: Appropriate GCS: 15 ED Course: Times/Reassessments: Continued paresthesias though no focal weakness or other concerning signs or symptoms Harvinder Singh MD Past Med/Surg History Problem List (Updated 01/17/24 @ 14:51 by Harvinder Singh MD) Paresthesia of left foot (Acute) Facial paresthesia (Acute) Stroke-like symptoms Family history of coronary artery disease Diabetes mellitus, type 2 GERD without esophagitis Hyperlipidemia Spondyloarthropathy (Chronic) Metabolic syndrome (Chronic) Osteopenia (Chronic) Chronic pain syndrome (Acute) Situational anxiety Rotator cuff arthropathy Impingement syndrome of right shoulder Rotator cuff tear, right Ankylosing spondylitis (Chronic) IBS (irritable bowel syndrome) (Chronic) Hepatic steatosis (Chronic) Osteoarthritis (Acute) History of colon polyps Pustular psoriasis Medical History (Updated 01/17/24 @ 14:51 by Harvinder Singh MD) Diverticulitis Cold sore Seasonal allergies Scleritis right eye- using steroid eye drops currently Degenerative disc disease Chronic back pain Hiatal hernia Peptic ulcer disease hx NSAID long-term use Lumbar radiculopathy Rheumatoid arthritis Surgical History History of esophagogastroduodenoscopy (EGD) History of colonoscopy H/O wisdom tooth extraction History of cryosurgery cervix Hx laparoscopic cholecystectomy 2005 in [place] S/P appendectomy 2009 Dr. Rudi Cotto Family History (Updated 07/12/23 @ 11:15 by Selena Combs DO) Mother Diabetes Coronary heart disease Hx of CABG, Onset Age: 60 Afib Anxiety and depression IBS (irritable bowel syndrome) Aunt Malignant neoplasm of uterus Ovarian cancer Father Colon cancer Aunt Breast cancer Brother Myocardial infarction S/P coronary artery stent placement Brother Myocardial infarction Denies family history of Prostate cancer Lung cancer Social History Smoking Status: Never smoker Tobacco Type: Cigarettes Age Started Using Tobacco: 23; Age Quit Using Tobacco: 51; packs per day: 0.5; Cigarettes Per Day: smoked off and on; Second Hand Exposure: No; Do You Dip or Chew Tobacco: No; Hx Alcohol Use: No Hx Substance Use: No Preferred Language: Maori Communication Ability: Effective Visual Impairment: No Limitations Hearing Ability: Normal Heel Attacher Wood Required: No Beliefs That Will Affect Care: None marital status: Current Living Situation: Alone Current Living Situation Comment: home with mother. current occupational status: employed current occupation: [employer] How many Children do You have: 1 Other Information That Helps Us Care for You: No Feels Safe at Home: Yes Safety Concerns: Feels Safe At This Time Childhood Exposure to Second-Hand Smoke: No Diet: regular Diet Comment: regular caffeine: Yes during the past year weight has: increased > 10 lbs Dental Care, Regularly: Yes Physical Activity Frequency: Daily Seatbelt Use: always Assistive Devices: None Allergies Allergies Allergy/AdvReac Type Severity Reaction Status Date / Time diphenhydramine Allergy Severe ITCHING Verified 09/05/23 14:01 Home Meds Home Medications Medication Instructions Recorded Confirmed cholecalciferol (vitamin D3) 50 4,000 unit PO HS 06/14/20 01/17/24 mcg (2,000 unit) tablet ascorbic acid (vitamin C) 1 tab PO DAILY 11/01/22 01/17/24 zinc acetate 1 tab PO DAILY 11/22/22 01/17/24 aspirin 81 mg tablet 81 mg PO HS 12/28/22 01/17/24 loratadine 10 mg tablet (Claritin) 10 mg PO DAILY 07/12/23 01/17/24 metformin 500 mg tablet 500 mg PO DAILY 01/17/24 01/17/24 Previous Rx's Medication Instructions Recorded atorvastatin 20 mg tablet 20 mg PO DAILY #90 tabs 09/05/23 Results & Data (ED) Vital Signs Vital Signs - 24 hr 01/17/24 11:04 Pulse Rate [Apical] 84 Respiratory Rate 18 Respiratory Effort / Characteristics Non-Labored Respiratory Depth Normal Respiratory Pattern Regular Blood Pressure [Right Arm] 147/93 H Blood Pressure Mean [Right Arm] 111 Pulse Oximetry 97 Oxygen Delivery Method Room Air Laboratory Data 01/18/24 03:41 01/18/24 03:41 Lab Results 01/17/24 01/17/24 Range/Units 08:40 08:49 WBC 8.22 (4.8-10.8) K/ul RBC 5.15 (4.20-5.40) M/uL Hgb 15.0 (12.0-16.0) g/dl POC Hgb 15.3 (12.0-16.0) g/dl Hct 44.8 (37.0-47.0) % POC Hct 45 (37-47) % MCV 87.0 (80.0-100.0) fL MCH 29.1 (25.0-34.0) pg MCHC 33.5 (32.0-36.0) g/dL RDW Std Deviation 44.4 (36.4-46.3) fL RDW Coeff of Antonio 13.9 (11.5-14.5) % Plt Count 244 (130-400) K/uL MPV 9.7 (9.4-12.4) fL Immature Gran % (Auto) 0.2 % Neut % (Auto) 59.1 % Lymph % (Auto) 32.4 % [place] % (Auto) 4.7 % Eos % (Auto) 2.9 % Baso % (Auto) 0.7 % Neut # (Auto) 4.85 (1.40-6.50) K/uL Lymph # (Auto) 2.66 (1.20-3.40) K/uL [place] # (Auto) 0.39 (0.11-0.59) K/uL Eos # (Auto) 0.24 (0.00-0.50) K/uL Baso # (Auto) 0.06 (0.00-0.20) K/uL Immature Gran # (Auto) 0.02 (0.01-0.20) K/uL PT 11.2 (9.0-12.0) Seconds INR 1.0 (0.9-1.1) APTT 28 (21-31) Seconds PTT Ratio 1.0 POC Sodium 136 (135-144) mmol/L Sodium 137 (136-145) mmol/L POC Potassium 4.5 (3.3-5.0) mmol/L Potassium 4.5 (3.5-5.1) mmol/L POC Chloride 102 (101-112) mmol/L Chloride 102 (98-107) mmol/L Carbon Dioxide 25 (21-32) mmol/L POC Total CO2 23 L (24-31) mmol/L Anion Gap 10 (3-11) POC Anion Gap 16.0 (16-25) mmol/L POC BUN 12 (7-18) mg/dl BUN 14 (6-23) mg/dl Creatinine 0.62 (0.6-1.2) mg/dl POC Creatinine 0.6 (0.6-1.3) mg/dl Est Cr Clr Drug Dosing 109.7 ml/min Est GFR ( Amer) 112.8 ml/min Est GFR (Non-Af Amer) 97.3 ml/min BUN/Creatinine Ratio 22.6 H (10-20) Glucose 158 H (70-99(Fasting)) mg/dl POC Glucose (other) 165 H (70-99) mg/dl Calcium 10.0 (8.6-10.3) mg/dl POC Ioniz Calcium [place] 1.17 (1.12-1.32) mmol/l Magnesium 1.8 (1.7-2.4) mg/dl Total Bilirubin 0.8 (0.2-1.0) mg/dl AST 52 H (13-39) U/L ALT 67 H (7-52) U/L Alkaline Phosphatase 59 (34-104) U/L Troponin I High Sens < 2.3 (0-14) pg/ml Total Protein 7.7 (6.0-8.3) gm/dl Albumin 4.7 (3.4-5.0) gm/dl Globulin 3.0 (2.5-4.0) gm/dl Albumin/Globulin Ratio 1.6 (0.9-2) Administered Medications Acetaminophen (Acetaminophen 325 Mg Tab) 650 mg PO Q4H PRN PRN Reason: Pain or Fever Stop: 02/16/24 12:48 Last Admin: 01/17/24 15:16 Dose: 650 mg Documented By: [id number] Ascorbic Acid (Ascorbic Acid 500 Mg Tab) 500 mg PO DAILY [facility] Stop: 02/17/24 08:59 Last Admin: 01/18/24 08:06 Dose: 500 mg Documented By: SKYLAR Aspirin (Aspirin 81 Mg Ectab) 81 mg PO [facility] Stop: 02/16/24 20:59 Last Admin: 01/17/24 21:11 Dose: 81 mg Documented By: ESTER Atorvastatin Calcium (Atorvastatin 40 Mg Tab) 40 mg PO [facility] Stop: 02/17/24 08:59 Last Admin: 01/18/24 09:51 Dose: 40 mg Documented By: TMP Clopidogrel Bisulfate (Clopidogrel Bisulfate 75 Mg Tab) 75 mg PO [facility] Stop: 02/17/24 08:59 Last Admin: 01/18/24 08:06 Dose: 75 mg Documented By: SKYLAR Insulin Aspart (Insulin Aspart Per Unit Charge) 0 units SC ACHS [facility] Stop: 02/16/24 13:14 Last Admin: 01/18/24 08:06 Dose: Not Given Documented By: Admin: 01/17/24 21:12 Dose: Not Given Documented By: ESTER Co-signed By: EVELIO Admin: 01/17/24 17:38 Dose: Not Given Documented By: [id number] Admin: 01/17/24 13:35 Dose: Not Given Documented By: [id number] Insulin Glargine (Lantus Per Unit Charge) 5 units SQ BID [facility] Stop: 02/16/24 20:59 Last Admin: 01/18/24 08:07 Dose: Not Given Documented By: Admin: 01/17/24 21:12 Dose: Not Given Documented By: ESTER Vitamin D (Cholecalciferol 25 Mcg (1000 Units) Tab) 100 mcg PO [facility] Stop: 02/16/24 20:59 Last Admin: 01/17/24 21:11 Dose: 100 mcg Documented By: ESTER Zinc Sulfate (Zinc Sulfate 220 Mg Capsule) 220 mg PO DAILY [facility] Stop: 02/17/24 08:59 Last Admin: 01/18/24 08:06 Dose: 220 mg Documented By: TMP Discontinued Medications Aspirin (Aspirin 81 Mg Chew) 324 mg PO NOW STA Stop: 01/17/24 10:23 Last Admin: 01/17/24 11:02 Dose: 324 mg Documented By: CICI Sodium Chloride (Nss) 1,000 mls @ 999 mls/hr IV .Q1H1M ONE Stop: 01/17/24 09:32 Last Infusion: 01/17/24 09:51 Dose: Infused Documented By: Admin: 01/17/24 08:44 Dose: 999 mls/hr Documented By: CICI Ioversol (Optiray 320 125ml) 112 ml IV ONCE ONE Stop: 01/17/24 09:19 Last Admin: 01/17/24 09:19 Dose: 112 ml Documented By: MISAEL Imaging Data Radiologist's Impression: Head CT 01/17/24 08:32 CT head/brain wo con, CT angio head w con CLINICAL HISTORY: 63 years-old Female with neuro deficit, acute stroke suspected. Acute stroke like symptoms COMPARISON STUDY: CTA neck of same day TECHNIQUE: Unenhanced axial CT scan of the brain is performed. Subsequently, following the IV administration of 112 cc of Optiray, CT angiogram of the brain was performed from the skull base to the vertex. Images are reviewed in the axial, sagittal, and coronal planes. 3-D MIPS images are created and assessed. IV contrast was administered without complication. All measurements were obtained according to NASCET criteria. A dose lowering technique was utilized adhering to the principles of ALARA. CT DOSE: 1172.74 mGy.cm FINDINGS: CT BRAIN: There is no acute intracranial hemorrhage, midline shift, hydrocephalus, intracranial mass, territorial ischemia or abnormal extra-axial collections. No abnormal intra-axial or extra-axial enhancement. Mastoid air cells and middle ear cavities are clear. No calvarial fracture. Paranasal sinuses are clear. CT ANGIOGRAM OF THE BRAIN: The imaged bilateral internal carotid arteries are patent with mild to moderate atherosclerosis, most pronounced within the cavernous, clinoid and supraclinoid segments. The bilateral anterior and middle cerebral arteries are also patent. The vertebrobasilar system and posterior cerebral arteries are widely patent. There is no aneurysm, high-grade stenosis, or proximal branch occlusion identified. Dural sinuses appear patent. IMPRESSION: 1. No acute intracranial abnormality. 2. Unremarkable CTA of the head. ACT 112: Negative or not required by law. The above report was generated using voice recognition software. It may contain grammatical, syntax or spelling errors. Electronically signed by: Arpit Frazier M.D. 01/17/2024 10:18 AM Head CTA 01/17/24 08:32 CT head/brain wo con, CT angio head w con CLINICAL HISTORY: 63 years-old Female with neuro deficit, acute stroke suspected. Acute stroke like symptoms COMPARISON STUDY: CTA neck of same day TECHNIQUE: Unenhanced axial CT scan of the brain is performed. Subsequently, following the IV administration of 112 cc of Optiray, CT angiogram of the brain was performed from the skull base to the vertex. Images are reviewed in the axial, sagittal, and coronal planes. 3-D MIPS images are created and assessed. IV contrast was administered without complication. All measurements were obtained according to NASCET criteria. A dose lowering technique was utilized adhering to the principles of ALARA. CT DOSE: 1172.74 mGy.cm FINDINGS: CT BRAIN: There is no acute intracranial hemorrhage, midline shift, hydrocephalus, intracranial mass, territorial ischemia or abnormal extra-axial collections. No abnormal intra-axial or extra-axial enhancement. Mastoid air cells and middle ear cavities are clear. No calvarial fracture. Paranasal sinuses are clear. CT ANGIOGRAM OF THE BRAIN: The imaged bilateral internal carotid arteries are patent with mild to moderate atherosclerosis, most pronounced within the cavernous, clinoid and supraclinoid segments. The bilateral anterior and middle cerebral arteries are also patent. The vertebrobasilar system and posterior cerebral arteries are widely patent. There is no aneurysm, high-grade stenosis, or proximal branch occlusion identified. Dural sinuses appear patent. IMPRESSION: 1. No acute intracranial abnormality. 2. Unremarkable CTA of the head. ACT 112: Negative or not required by law. The above report was generated using voice recognition software. It may contain grammatical, syntax or spelling errors. Electronically signed by: Arpit Frazier M.D. 01/17/2024 10:18 AM Neck CTA 01/17/24 08:32 CT ANGIOGRAPHY OF THE NECK WITH CONTRAST CLINICAL HISTORY: neuro deficit, acute stroke suspected COMPARISON STUDY: No previous studies for comparison. Technique: CT angiography of the carotid and vertebral arteries was obtained using Optiray and 3D reconstruction on an independent workstation. NASCET criteria was utilized. Automated exposure control was utilized for the study. A dose lowering technique was utilized adhering to the principles of ALARA. Findings: Visualized portions of the lung apices are unremarkable. There are no cervical spine fractures. There is no cervical lymphadenopathy. There is mild plaque within the proximal left internal carotid artery without stenosis. There is no dissection or aneurysm within the neck. There is also mild plaque within the right carotid bifurcation without stenosis. IMPRESSION: 1. Mild atherosclerotic plaque within the proximal bilateral internal carotid arteries without stenosis. 2. No stenosis or dissection within the bilateral common carotid, cervical internal carotid or vertebral arteries. ACT 112: Negative or not required by law. Electronically signed by: James Fletcher M.D. 01/17/2024 9:53 AM Discharge Plan Visit Data Chief Complaint: Facial Injury/Pain Stated Complaint: FACIAL NUMBNESS ON L SIDE, DOWN L ARM LAST NIGHT ED Provider: Harvinder Singh Discharge Problem: Facial paresthesia, Paresthesia of left foot Patient Disposition: Admitted As Inpatient Discharge Instructions Interventions: ED Discharge Assessment Last Done: 01/17/24 12:22
[2024-01-17] MEDS: SODIUM CHLORIDE 0.9% 1,000 ML IV ONE (08:44)
[2024-01-17 09:06] LABS: Basophils # (auto) 0.06 K/uL (0.00-0.20); Basophils % (auto) 0.7 %; Eosinophils # (auto) 0.24 K/uL (0.00-0.50); Eosinophils % (auto) 2.9 %; Hematocrit (blood only) 44.8 % (37.0-47.0); Immature Granulocytes # (auto) 0.02 K/uL (0.01-0.20); Immature Granulocytes % (auto) 0.2 %; Lymphocytes # (auto) 2.66 K/uL (1.20-3.40); Lymphocytes % (auto) 32.4 %; Mean Corpuscular Hemoglobin 29.1 pg (25.0-34.0); Mean Corpuscular Hgb Conc 33.5 g/dL (32.0-36.0); Mean Platelet Volume 9.7 fL (9.4-12.4); Monocytes # (auto) 0.39 K/uL (0.11-0.59); Monocytes % (auto) 4.7 %; Neutrophils # (auto) 4.85 K/uL (1.40-6.50); Neutrophils % (auto) 59.1 %; Platelet Count 244 K/uL (130-400); RDW Coefficient of Variation 13.9 % (11.5-14.5); RDW Standard Deviation 44.4 fL (36.4-46.3); Red Blood Count 5.15 M/uL (4.20-5.40); White Blood Count 8.22 K/ul (4.8-10.8)
[2024-01-17] MEDS: OPTIRAY 320 125ml IV ONE (09:19)
[2024-01-17 09:31] LABS: Partial Thromboplastin Time 28 Seconds (21-31); Prothrombin Time 11.2 Seconds (9.0-12.0)
[2024-01-17 09:32] LABS: Alanine Aminotransferase 67 U/L (7-52); Albumin Globulin Ratio 1.6 (0.9-2); Albumin Level 4.7 gm/dl (3.4-5.0); Alkaline Phosphatase 59 U/L (34-104); Anion Gap 10 (3-11); Aspartate Aminotransferase 52 U/L (13-39); BUN Creatinine Ratio 22.6 (10-20); Bilirubin,Total 0.8 mg/dl (0.2-1.0); Blood Urea Nitrogen 14 mg/dl (6-23); Carbon Dioxide 25 mmol/L (21-32); Chloride 102 mmol/L (98-107); Creatinine Clr Calc Pharmacy 109.7 ml/min; Est GFR (African American) 112.8 ml/min; Est GFR (Non-African American) 97.3 ml/min; Glucose 158 mg/dl (70-99(Fasting)); Magnesium 1.8 mg/dl (1.7-2.4); Potassium 4.5 mmol/L (3.5-5.1); Sodium 137 mmol/L (136-145); Total Protein 7.7 gm/dl (6.0-8.3)
[2024-01-17 09:38] LABS: Troponin I High Sensitivity < 2.3 pg/ml (0-14)
--- NOTE | 2024-01-17 09:55 | CT Scan Report ---
CT ANGIOGRAPHY OF THE NECK WITH CONTRAST CLINICAL HISTORY: neuro deficit, acute stroke suspected COMPARISON STUDY: No previous studies for comparison. Technique: CT angiography of the carotid and vertebral arteries was obtained using Optiray and 3D rec onstruction on an independent workstation. NASCET criteria was utilized. Automated exposure control was utilized for the study. A dose lowering technique was utilized adhering to the principles of ALA RA. Findings: Visualized portions of the lung apices are unremarkable. There are no cervical spine fractu res. There is no cervical lymphadenopathy. There is mild plaque within the proximal left internal car otid artery without stenosis. There is no dissection or aneurysm within the neck. There is also mild plaque within the right carotid bifurcation without stenosis. IMPRESSION: 1. Mild atherosclerotic plaque within the proximal bilateral internal carotid arteries without stenos is. 2. No stenosis or dissection within the bilateral common carotid, cervical internal carotid or verteb ral arteries. ACT 112: Negative or not required by law. Electronically signed by: James Fletcher M.D. 01/17/2024 9:53 AM
--- NOTE | 2024-01-17 10:13 | History & Physical Report ---
Date of Service January 17, 2024 Assessment & Plan (1) Stroke-like symptoms: Plan: Strokelike symptoms Left-sided numbness/tingling, gait disturbance, left facial tingling History of DM 2, hyperlipidemia and family history of early strokes - CThead: No acute findings CTAhead/neck: No acute intracranial findings. Mild atherosclerotic plaque within the proximal bilateral internal carotid arteries without stenosis. No acute findings MRI ordered Started on DAPT Lipid panel pending EKG: Normal sinus rhythm. No territorial ST segment changes Limited echo for bubble study pending B12 added for paresthesias Hepatic steatosis, history of nonalcoholic fatty liver disease Mild transaminitis. Denies regular alcohol use, drinks rarely and socially with a 1 drink last Sunday and otherwise none in several days She does not think she has ever had hepatitis panel checked, and LDL is actually been reasonably controlled recently Statin temporarily held, hepatitis panel added, CMP trended, CK added (2) Diabetes mellitus, type 2: Plan: Home antiglycemic's held Goal BSG [id number] Weight-based basal bolus added Last A1c 7.3% 07/2023. Due for 6-month recheck, A1c added (3) Hyperlipidemia: Plan: Statin temporarily held as noted Plan Chronic stable issues IBS: Stable Osteopenia: Continue calcium/vitamin D History of abnormal abdominal CT nonbleeding internal hemorrhoids on last colonoscopy 12/2022. Random biopsies at that time with nonspecific colitis not consistent with microscopic colitis or IBD. - Ankylosing spondylitis: Follows with rheumatology. Has been on observation off immunosuppression. No acute change in manage lightish endorses some chronic back pain from this, no recent change in pain DVT prophylaxis: Lovenox after 24 hours Disposition: Medical telemetry for CVA evaluation CODE STATUS: Full Diet: DM 2 History of Present Illness Primary Care Provider: Selena Combs DO Alyssa is a 63-year-old female with a past medical history of type 2 diabetes, hyperlipidemia, and family history of early CAD/strokes who was in her normal state of health up until last night when she developed left-sided facial parest hesias. She went to bed and this morning again noted worsening left facial paresthesias, left leg numbness, and left leg tingling. On ER evaluation did not endorse strength changes, but did have difficulty walking straight. She took an extra aspirin last night due to her symptoms. Alyssa is seen at the bedside. She reports that last night she had left-sided facial numbness/tingling without speech deficits. This morning she has had left sided tingling paresthesias of her lower extremity which goes from the top of the foot up to the knee, and in her left arm which goes from the tip of the fi ngertips up to her shoulder. She has not had symptoms like this before. She has not had any lightheadedness, dizziness, nausea, vomiting, or recent cold- like symptoms. She does not have facial asymmetry at rest, and speech is fluent. She does have a extensive family history of CAD and strokes. Alyssa does not have a personal history of CAD or strokes, was recently diagnosed with diabetes and is a former smoker. Full dose aspirin was ordered in the ER. She took 2 aspirin last night due to her symptoms. Medical History: Reviewed Medications: Reviewed Surgical History: Reviewed Family history: Reviewed Allergies: Reviewed Social History: Former smoker Code Status: Full Allergies Allergy/AdvReac Type Severity Reaction Status Date / Time diphenhydramine Allergy Severe ITCHING Verified 09/05/23 14:01 Home Medications Medication Instructions Recorded Confirmed Type cholecalciferol (vitamin D3) 50 4,000 unit PO HS 06/14/20 01/17/24 History mcg (2,000 unit) tablet ascorbic acid (vitamin C) 1 tab PO DAILY 11/01/22 01/17/24 History zinc acetate 1 tab PO DAILY 11/22/22 01/17/24 History aspirin 81 mg tablet 81 mg PO HS 12/28/22 01/17/24 History loratadine 10 mg tablet (Claritin) 10 mg PO DAILY 07/12/23 01/17/24 History atorvastatin 20 mg tablet 20 mg PO DAILY #90 tabs 09/05/23 01/17/24 Rx metformin 500 mg tablet 500 mg PO DAILY 01/17/24 01/17/24 History Past Med/Surg History Problem List (Updated 01/17/24 @ 11:02 by Robbin Willis MD) Stroke-like symptoms Family history of coronary artery disease Diabetes mellitus, type 2 GERD without esophagitis Hyperlipidemia Spondyloarthropathy (Chronic) Metabolic syndrome (Chronic) Osteopenia (Chronic) Chronic pain syndrome (Acute) Situational anxiety Rotator cuff arthropathy Impingement syndrome of right shoulder Rotator cuff tear, right Ankylosing spondylitis (Chronic) IBS (irritable bowel syndrome) (Chronic) Hepatic steatosis (Chronic) Osteoarthritis (Acute) History of colon polyps Pustular psoriasis Medical History (Updated 01/17/24 @ 11:02 by Robbin Willis MD) Diverticulitis Cold sore Seasonal allergies Scleritis right eye- using steroid eye drops currently Degenerative disc disease Chronic back pain Hiatal hernia Peptic ulcer disease hx NSAID long-term use Lumbar radiculopathy Rheumatoid arthritis Surgical History History of esophagogastroduodenoscopy (EGD) History of colonoscopy H/O wisdom tooth extraction History of cryosurgery cervix Hx laparoscopic cholecystectomy 2004 in [place] S/P appendectomy 2008 Dr. Rudi Cotto Family History (Updated 07/12/23 @ 11:15 by Selena Combs DO) Mother Diabetes Coronary heart disease Hx of CABG, Onset Age: 60 Afib Anxiety and depression IBS (irritable bowel syndrome) Aunt Malignant neoplasm of uterus Ovarian cancer Father Colon cancer Aunt Breast cancer Brother Myocardial infarction S/P coronary artery stent placement Brother Myocardial infarction Denies family history of Prostate cancer Lung cancer Social History Smoking Status: Former smoker Tobacco Type: Cigarettes Age Started Using Tobacco: 23; Age Quit Using Tobacco: 51; packs per day: 0.5; Cigarettes Per Day: smoked off and on; Second Hand Exposure: No; Do You Dip or Chew Tobacco: No; Hx Alcohol Use: No Hx Substance Use: No Preferred Language: Romanian Communication Ability: Effective Visual Impairment: No Limitations Hearing Ability: Normal 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 NAD. Cooperative. HEENT: Atraumatic, normocephalic. Pulm: CTAB A&P. -wheezes, -rales, -rhonchi. Symmetrical chest rise. No increased work of breathing. No respiratory distress. Cardiac: RRR, -mrg. Radial pulses intact and symmetrical. Abdominal: Nontender, nondistended, soft. BS present. CRANIAL NERVES: II: Pupils equal and reactive, no relative afferent pupillary defect, no VF cuts III, IV, : EOM intact, no gaze preference or deviation, no nystagmus. V: Endorses intact sensation in V1/V2/V3 bilaterally, but with left-sided paresthesias in addition to normal sensation VII: no asymmetry, no nasolabial fold flattening VIII: normal hearing to speech IX, X: normal palatal elevation, no uvular deviation XI: 5/5 head turn and 5/5 shoulder shrug bilaterally XII: midline tongue protrusion MOTOR: RUE: 5/5 Shoulder internal rotation, external rotation, flexion, extension, abduction, adduction 5/5 Elbow flexion/extension, wrist flexi on/extension 5/5 automobile body repairer strength, finger flexion/extens ion, interosseus LUE: 5/5 Shoulder internal rotation, external rotation, flexion, extension, abduction, adduction 5/5 Elbow flexion/extension, wrist flexi on/extension 5/5 automobile body repairer strength, finger flexion/extens ion, interosseus RLE: 5/5 to hip flexion ankle dorsiflexion/pl antarflexion LLE: 5/5 to hip flexion, ankle dorsiflexion/p lantarflexion REFLEXES: 2/4 patellar, bicepts, and achilles DTR without asymmetry. Bilateral flexor planter response, no Carroll's, no clonus SENSORY: Station intact to soft touch in hands and feet bilaterally, sensation soft touch is symmetrical but patient notes some overlying paresthesias on her left leg at the anterior surface extending from the toes up to the knee, and in the left arm extending from the fingertips to the shoulder. COORD: Normal finger to nose and heel to son Results & Data Results & Data Vital Signs (Past 12 Hours) Vital Signs Temp Pulse Pulse Resp BP BP Pulse Ox 01/17/24 09:50 80 16 123/87 97 01/17/24 08:57 86 01/17/24 08:56 90 14 142/91 H 96 01/17/24 08:16 36.7 C 76 20 158/103 H 100 O2 Del Method 01/17/24 09:50 Room Air 01/17/24 08:57 01/17/24 08:56 Room Air 01/17/24 08:16 Room Air PG Care Time/CCT Total # of Minutes Spent Total Time Spent with Patient: Total time spent is greater than 50% in coordination of care (as documented) at patient's floor/unit and/or counseling patient: Coding Level of Care Code 36822 INT INP/OBS CARE 3/75MIN Diagnoses Stroke-like symptoms R29.90 Diabetes mellitus, type 2 E11.9 Hyperlipidemia E78.5
[2024-01-17 10:18] LABS: iSTAT Creatinine 0.6 mg/dl (0.6-1.3); iSTAT Hemoglobin 15.3 g/dl (12.0-16.0); iSTAT Ionized Calcium 1.17 mmol/l (1.12-1.32); iSTAT Potassium 4.5 mmol/L (3.3-5.0)
--- NOTE | 2024-01-17 10:21 | CT Scan Report ---
CT head/brain wo con, CT angio head w con CLINICAL HISTORY: 63 years-old Female with neuro deficit, acute stroke suspected. Acute stroke lik e symptoms COMPARISON STUDY: CTA neck of same day TECHNIQUE: Unenhanced axial CT scan of the brain is performed. Subsequently, following the IV adminis tration of 112 cc of Optiray, CT angiogram of the brain was performed from the skull base to the vert ex. Images are reviewed in the axial, sagittal, and coronal planes. 3-D MIPS images are created and a ssessed. IV contrast was administered without complication. All measurements were obtained according to NASCET criteria. A dose lowering technique was utilized adhering to the principles of ALARA. CT DOSE: 1172.74 mGy.cm FINDINGS: CT BRAIN: There is no acute intracranial hemorrhage, midline shift, hydrocephalus, intracranial mass, territori al ischemia or abnormal extra-axial collections. No abnormal intra-axial or extra-axial enhancement. Mastoid air cells and middle ear cavities are clear. No calvarial fracture. Paranasal sinuses are cl ear. CT ANGIOGRAM OF THE BRAIN: The imaged bilateral internal carotid arteries are patent with mild to moderate atherosclerosis, most pronounced within the cavernous, clinoid and supraclinoid segments. The bilateral anterior and middl e cerebral arteries are also patent. The vertebrobasilar system and posterior cerebral arteries are w idely patent. There is no aneurysm, high-grade stenosis, or proximal branch occlusion identified. Dur al sinuses appear patent. IMPRESSION: 1. No acute intracranial abnormality. 2. Unremarkable CTA of the head. ACT 112: Negative or not required by law. The above report was generated using voice recognition software. It may contain grammatical, syntax o r spelling errors. Electronically signed by: Arpit Frazier M.D. 01/17/2024 10:18 AM
[2024-01-17] MEDS: ASPIRIN 81 MG CHEW PO STA (11:02)
[2024-01-17] MEDS ORDERED: DEXTROSE 50% 50 ML SYRINGE IV PRN (12:49)
[2024-01-17] MEDS ORDERED: GLUCAGON FOR INJ 1 MG VIAL SQ PRN (12:49)
[2024-01-17] MEDS ORDERED: GLUCOSE 40% GEL 15 GM TUBE PO PRN (12:49)
[2024-01-17] MEDS ORDERED: CARBOHYDRATES FOR HYPOGLYCEMIA PO PRN (12:49)
[2024-01-17] MEDS ORDERED: GLUCOSE 10 TAB/TUBE PO PRN (12:49)
[2024-01-17] MEDS ORDERED: PHARMACIST DISCHARGE MED REC CONSULT PRN (12:49)
--- NOTE | 2024-01-17 12:58 | XCELERA ---
[id number]
[2024-01-17] MEDS: INSULIN ASPART PER UNIT CHARGE SC SCH (13:35)
--- NOTE | 2024-01-17 14:44 | Electrocardiogram Report ---
Test Reason : Blood Pressure : */* mmHG Vent. Rate : 94 BPM Atrial Rate : 94 BPM P-R Int : 152 ms QRS Dur : 74 ms QT Int : 342 ms P-R-T Axes : 40 82 56 degrees QTcB Int : 427 ms Normal sinus rhythm Low voltage QRS Borderline ECG When compared with ECG of 26-Aug-2010 12:25, No significant change Confirmed by Federico Poole ([id number]) on 01/17/2024 2:43:28 PM Referred By: REFERRED SELF Confirmed By: Federico Poole
[2024-01-17] MEDS: ACETAMINOPHEN 325 MG TAB PO PRN (15:16)
--- NOTE | 2024-01-17 17:00 | Magnetic Resonance Report ---
MR brain wo con CLINICAL HISTORY: L weakness, CVA eval TECHNIQUE: Multiplanar and multisequence MR images of the brain were obtained without intravenous con trast. Comparison: None available at the time of this dictation. FINDINGS: No abnormal restricted diffusion is identified. The white matter is unremarkable. The ventricular sys tem is normal in appearance. No mass is seen. There is no mass effect or midline shift. There is no e vidence of acute intraparenchymal hemorrhage. No extra axial fluid collections are seen. The corpus c allosum, pituitary gland, and cerebellar tonsils appear grossly unremarkable. Flow voids of the major intracranial arterial vessels are identified. The imaged portions of the para nasal sinuses, mastoid air cells, and orbits are unremarkable. IMPRESSION: No acute abnormalities. ACT 112: Negative or not required by law. Electronically signed by: Jaspal Ruth M.D. 01/17/2024 4:57 PM
[2024-01-17] MEDS: ASPIRIN 81 MG ECTAB PO SCH (21:11)
[2024-01-17] MEDS: CHOLECALCIFEROL 25 MCG (1000 UNITS) TAB PO SCH (21:11)
[2024-01-17] MEDS: LANTUS PER UNIT CHARGE SQ SCH (21:12)
[2024-01-18 04:21] LABS: Basophils # (auto) 0.05 K/uL (0.00-0.20); Basophils % (auto) 0.7 %; Eosinophils # (auto) 0.25 K/uL (0.00-0.50); Eosinophils % (auto) 3.4 %; Hematocrit (blood only) 40.5 % (37.0-47.0); Hemoglobin 13.4 g/dl (12.0-16.0); Immature Granulocytes # (auto) 0.02 K/uL (0.01-0.20); Immature Granulocytes % (auto) 0.3 %; Lymphocytes % (auto) 41.7 %; Mean Corpuscular Hgb Conc 33.1 g/dL (32.0-36.0); Mean Corpuscular Volume 87.7 fL (80.0-100.0); Mean Platelet Volume 9.6 fL (9.4-12.4); Monocytes # (auto) 0.37 K/uL (0.11-0.59); Neutrophils # (auto) 3.64 K/uL (1.40-6.50); Neutrophils % (auto) 48.9 %; Platelet Count 197 K/uL (130-400); RDW Coefficient of Variation 13.7 % (11.5-14.5); RDW Standard Deviation 43.9 fL (36.4-46.3); Red Blood Count 4.62 M/uL (4.20-5.40); White Blood Count 7.43 K/ul (4.8-10.8)
[2024-01-18 04:36] LABS: Albumin Level 4.1 gm/dl (3.4-5.0); BUN Creatinine Ratio 25.4 (10-20); Bilirubin Direct 0.1 mg/dl (0-0.2); Bilirubin,Total 0.7 mg/dl (0.2-1.0); Chol HDL Ratio 6.5 (0-5); Creatinine Clr Calc Pharmacy 115.3 ml/min; Est GFR (African American) 114.7 ml/min; Est GFR (Non-African American) 98.9 ml/min; Total Protein 6.7 gm/dl (6.0-8.3)
[2024-01-18 07:31] LABS: Estimated Average Glucose 146 mg/dl; Hemoglobin A1C 6.7 % (4.5-5.6)
[2024-01-18] MEDS: CLOPIDOGREL BISULFATE 75 MG TAB PO SCH (08:06)
[2024-01-18] MEDS: ASCORBIC ACID 500 MG TAB PO SCH (08:06)
[2024-01-18] MEDS: ZINC SULFATE 220 MG CAPSULE PO SCH (08:06)
[2024-01-18 08:16] VITALS: RESP 18
[2024-01-18 09:13] LABS: Hep B Surface Ag with confirm Negative (Negative)
[2024-01-18 09:17] LABS: Hep C Ab Rflx HepCQuant RNA Negative (Negative)
[2024-01-18] MEDS: ATORVASTATIN 40 MG TAB PO SCH (09:51)
--- NOTE | 2024-01-18 10:48 | Pharmacy Report ---
- Date of Service January 18, 2024 - Pharmacy CVA/TIA Medication Review Medications to Prevent Stroke handout has been added to the patients discharge packet. Antiplatelet(s) * aspirin 81 mg PO daily + clopidogrel 75 mg PO daily x 21 days w/ plan for clopidogrel monotherapy thereafter Cholesterol * High intensity statin: atorvastatin 40 mg daily DVT Prophylaxis * Enoxaparin SQ Therapeutic Anticoagulation * No history of Afib/Aflutter noted Type 2 Diabetes * Patient has T2DM, but per Dr. Mccann, a diabetes medication with proven CVD benefit will be deferred to their outpatient provider due to familiarity with risks/benefits of such therapies. "Medications to prevent stroke" handout has already been added to the patient's discharge packet, which instructs the patient to follow up with their outpatient provider to evaluate which diabetes medication with proven CVD benefit is best for them
[2024-01-18] MEDS ORDERED: STROKE PATIENT DISCHARGE STA (11:16)
--- NOTE | 2024-01-18 11:19 | Discharge Summary ---
Discharge Summary Date of Service January 18, 2024 Principal Dx & Hospital Course #1 = Principal Diagnosis (1) Stroke-like symptoms: Strokelike symptoms Left-sided numbness/tingling, gait disturbance, left facial tingling History of DM 2, hyperlipidemia and family history of early strokes - CThead: No acute findings CTAhead/neck: No acute intracranial findings. Mild atherosclerotic plaque within the proximal bilateral internal carotid arteries without stenosis. No acute findings MRI:no acute findings Started on DAPT - can discontinue ASA 81mg after 21 days of DAPT, plavix prescribed Lipid panel - elevated but improved from previous, atorvastatin increased to 40mg EKG: Normal sinus rhythm. No territorial ST segment changes B12 added for paresthesias - WNL Echo: EF 55-60%, with intraatrial shunt - 30 day air carrier inspector ordered (no afib while on tele) - Follow up with Dr. Poole after monitor Hepatic steatosis, history of nonalcoholic fatty liver disease Mild transaminitis. - improving - CK WNL - statin increased as above - hepatitis panel pending PT/OT - recommend return home (2) Diabetes mellitus, type 2: A1c improved to 6.7 Resume home regiment at discharge Defer antiglycemic with CAD risk lowering properties initiation to PCP (3) Hyperlipidemia: Atorvastatin increased to 40mg Plan Chronic stable issues IBS: Stable Osteopenia: Continue calcium/vitamin D History of abnormal abdominal CT nonbleeding internal hemorrhoids on last c olonoscopy 12/2022. Random biopsies at that time with nonspecific colitis not consistent with microscopic colitis or IBD. - Ankylosing spondylitis: Follows with rheumatology. Has been on observation off immunosuppression. No acute change in manage lightish endorses some chronic back pain from this, no recent change in pain Dispo: home today Notes For Next Care Provider Admitted for stroke workup after unilateral facial paresthesias. Symptoms resolved spontaneously, suspect TIA. Atorvastatin increased to 40. DAPT x 21 days Intra-atrial shunt - 30 day air carrier inspector ordered Hepatitis studies pending Medication Changes From Visit plavix started atorvastatin increased to 40mg Admission HPI Per Admitting Provider Alyssa is a 63-year-old female with a past medical history of type 2 diabetes, hyperlipidemia, and family history of early CAD/strokes who was in her normal state of health up until last night when she developed left-sided facial paresthesias. She went to bed and this morning again noted worsening left facial paresthesias, left leg numbness, and left leg tingling. On ER evaluation did not endorse strength changes, but did have difficulty walking straight. She took an extra aspirin last night due to her symptoms. Alyssa is seen at the bedside. She reports that last night she had left-sided facial numbness/tingling without speech deficits. This morning she has had left sided tingling paresthesias of her lower extremity which goes from the top of the foot up to the knee, and in her left arm which goes from the tip of the fingertips up to her shoulder. She has not had symptoms like this before. She has not had any lightheadedness, dizziness, nausea, vomiting, or recent cold- like symptoms. She does not have facial asymmetry at rest, and speech is fluent. She does have a extensive family history of CAD and strokes. Alyssa does not have a personal history of CAD or strokes, was recently diagnosed with diabetes and is a former smoker. Full dose aspirin was ordered in the ER. She took 2 aspirin last night due to her symptoms. Medical History: Reviewed Medications: Reviewed Surgical History: Reviewed Family history: Reviewed Allergies: Reviewed Social History: Former smoker Code Status: Full Discharge Exam General: NAD, VS as above Resp: normal respiratory effort, lungs clear to auscultation CV: RRR, no murmur, Abd: normal bowel sounds, non tender, no hepatosplenomegaly Extremities: Moves all extremities, no edema Neuro: A&O x3, no focal deficits, sensation intake, B/l UE strength 5/5, asset manager strength intact Skin: intact, no lesions noted Discharge Plan Discharge Items Patient Disposition: Home - Self-Care Reason For Visit: FACIAL NUMBNESS ON L SIDE, DOWN L ARM LAST NIGHT Discharge Diagnosis: TIA Activity: Resume your previous activity Non-emergency contact: Primary Care Provider Call non-emergency contact if: you have any medication questions, your symptoms worsen and your temperature is above 101 Follow-up/Referrals: Federico Poole MD [Physician] - (follow up after 30 day event monitor ) Selena Combs DO [Primary Care Provider] - 01/25/24 8:20 am () Diet: Carb Consistent or DM2 and Heart Healthy Addtl Attending Provider Instructions: Mrs. Jay You were hospitalized after a period of numbness on your face and down your left side of your body. Thankfully this has resolved on its own. Your head imaging including CT and MRI did not show any stroke or other acute events. It is thought that this was a TIA or "mini stroke "episode. The treatment for this is focused on primary stroke prevention for this reason we have increased your atorvastatin to 40 mg once a day and have also changed her antiplatelet therapy. You will take baby aspirin and Plavix once a day for 21 days. After the 21 days you will only take Plavix once daily, and no longer need to take a baby aspirin. Your echocardiogram (ultrasound of you heart) showed a connection between the two atria (top chambers of your heart). This also puts you at higher risk for strokes. For this, we will do a 30 day monitor to check you for abnormal heart rhythms like atrial fibrillation that would put you at higher risk for stroke. You will follow up with cardiology after this to interpret results and determine next steps. We checked your hemoglobin A1c which is a measure of your blood sugars over 90 days and this was 6.7 which is improved from your prior. However there are medications that treat diabetes and are also helpful to prevent coronary artery disease and strokes, we will defer changes to your diabetic regimen to your primary care provider. Continue smoking sensation. Your liver tests are improving but you should continue follow-up for that with your primary care provider as well I have attached a handout with information regarding TIAs. Medications: Your medication list has been reviewed and reconciled upon discharge to ensure accuracy and continuity of care. An updated list of all your medications is included with your hospital discharge paperwork. Please review this list closely, and make note of any changes. Take your medications as instructed; do not skip a dose of your medicines. Make sure all of your doctors know every medicine you are taking (including [id number] medicines, vitamins, and supplements). Call your primary care provider before taking any new medicines (including over- the-counter medicines, vitamins, and supplements), because some of these may interact with your current medications, or may make your symptoms worse. Tell your primary care provider if you cannot afford your medications. Activity: You can do normal everyday activities as your body allows. Take rest breaks if you feel tired. Do not overexert. Stop activity if you have pain, shortness of breath or feel dizzy. Follow-up appointments: Make an appointment with your primary care physician within one week of discharge. A copy of this summary will be sent to them. Every time you see your primary care physician, or any other doctor, bring your medication list, and a list of questions. CONTACT YOUR PRIMARY CARE PROVIDER if you experience any of the following: Shortness of breath or difficulty breathing Fevers or chills Feeling tired with normal activity or experiencing dizziness or fainting Difficulty following your treatment plan, or difficulty taking medications CALL 911 OR GO TO THE EMERGENCY DEPARTMENT if you experience any of the following: Severe abdominal pain or nausea/vomiting Severe chest pain, or chest pain that radiates (moves) to your jaw or arm Sudden, severe shortness of breath or difficulty breathing - Facial droop, unilateral extremity weakness Thank you for allowing us to participate in your care. Pending Studies at Discharge: Yes (hepatitis testing ) Stand-Alone Forms: My [facility] In[employer], Smoking Cessation, Medications to Prevent Stroke Medications and DC Order Prescriptions: New clopidogrel 75 mg Tablet 75 mg PO QAM 30 Days Qty: 30 1RF atorvastatin 40 mg Tablet 40 mg PO QAM 30 Days Qty: 30 1RF Continued ascorbic acid (vitamin C) 1 tab PO DAILY Rx Instructions: -in winter zinc acetate 1 tab PO DAILY Rx Instructions: in winter cholecalciferol (vitamin D3) 50 mcg (2,000 unit) tablet 4,000 unit PO HS loratadine [Claritin] 10 mg tablet 10 mg PO DAILY aspirin 81 mg Tablet 81 mg PO HS metformin 500 mg tablet 500 mg PO DAILY Rx Instructions: PT REPORTED HER RX BOTTLE STATES ONCE DAILY Discontinued atorvastatin 20 mg tablet 20 mg PO DAILY Qty: 90 3RF Discharge Orders: Discharge Order (Routine); Ordered 01/18/24 Ordered By: Rosita Jj/Other Patient Handouts: TIA Dc, Type 2 Diabetes Admission Data Admit Date/Time: 01/17/24 11:11 Attending Provider: Emmett Mccann Admit Provider: Robbin Willis Primary Care Provider: Selena Combs Other Providers: Robbin Willis Other Interventions: Discharge Summary Assessment (RN) Last Done: 01/18/24 11:41 Hospital Stay Data Consultations 01/17/24 10:44 ED Decision to Admit Stat Diagnostic Imagining Performed Head CT 01/17/24 08:32 CT head/brain wo con, CT angio head w con CLINICAL HISTORY: 63 years-old Female with neuro deficit, acute stroke suspected. Acute stroke like symptoms COMPARISON STUDY: CTA neck of same day TECHNIQUE: Unenhanced axial CT scan of the brain is performed. Subsequently, following the IV administration of 112 cc of Optiray, CT angiogram of the brain was performed from the skull base to the vertex. Images are reviewed in the axial, sagittal, and coronal planes. 3-D MIPS images are created and assessed. IV contrast was administered without complication. All measurements were obtained according to NASCET criteria. A dose lowering technique was utilized adhering to the principles of ALARA. CT DOSE: 1172.74 mGy.cm FINDINGS: CT BRAIN: There is no acute intracranial hemorrhage, midline shift, hydrocephalus, intracranial mass, territorial ischemia or abnormal extra-axial collections. No abnormal intra-axial or extra-axial enhancement. Mastoid air cells and middle ear cavities are clear. No calvarial fracture. Paranasal sinuses are clear. CT ANGIOGRAM OF THE BRAIN: The imaged bilateral internal carotid arteries are patent with mild to moderate atherosclerosis, most pronounced within the cavernous, clinoid and supraclinoid segments. The bilateral anterior and middle cerebral arteries are also patent. The vertebrobasilar system and posterior cerebral arteries are widely patent. There is no aneurysm, high-grade stenosis, or proximal branch occlusion identified. Dural sinuses appear patent. IMPRESSION: 1. No acute intracranial abnormality. 2. Unremarkable CTA of the head. ACT 112: Negative or not required by law. The above report was generated using voice recognition software. It may contain grammatical, syntax or spelling errors. Electronically signed by: Arpit Frazier M.D. 01/17/2024 10:18 AM Head CTA 01/17/24 08:32 CT head/brain wo con, CT angio head w con CLINICAL HISTORY: 63 years-old Female with neuro deficit, acute stroke suspected. Acute stroke like symptoms COMPARISON STUDY: CTA neck of same day TECHNIQUE: Unenhanced axial CT scan of the brain is performed. Subsequently, following the IV administration of 112 cc of Optiray, CT angiogram of the brain was performed from the skull base to the vertex. Images are reviewed in the axial, sagittal, and coronal planes. 3-D MIPS images are created and assessed. IV contrast was administered without complication. All measurements were ob tained according to NASCET criteria. A dose lowering technique was utilized adhering to the principles of ALARA. CT DOSE: 1172.74 mGy.cm FINDINGS: CT BRAIN: There is no acute intracranial hemorrhage, midline shift, hydrocephalus, intracranial mass, territorial ischemia or abnormal extra-axial collections. No abnormal intra-axial or extra-axial enhancement. Mastoid air cells and middle ear cavities are clear. No calvarial fracture. Paranasal sinuses are clear. CT ANGIOGRAM OF THE BRAIN: The imaged bilateral internal carotid arteries are patent with mild to moderate atherosclerosis, most pronounced within the cavernous, clinoid and supraclinoid segments. The bilateral anterior and middle cerebral arteries are also patent. The vertebrobasilar system and posterior cerebral arteries are widely patent. There is no aneurysm, high-grade stenosis, or proximal branch occlusion identified. Dural sinuses appear patent. IMPRESSION: 1. No acute intracranial abnormality. 2. Unremarkable CTA of the head. ACT 112: Negative or not required by law. The above report was generated using voice recognition software. It may contain grammatical, syntax or spelling errors. Electronically signed by: Arpit Frazier M.D. 01/17/2024 10:18 AM Neck CTA 01/17/24 08:32 CT ANGIOGRAPHY OF THE NECK WITH CONTRAST CLINICAL HISTORY: neuro deficit, acute stroke suspected COMPARISON STUDY: No previous studies for comparison. Technique: CT angiography of the carotid and vertebral arteries was obtained using Optiray and 3D reconstruction on an independent workstation. NASCET criteria was utilized. Automated exposure control was utilized for the study. A dose lowering technique was utilized adhering to the principles of ALARA. Findings: Visualized portions of the lung apices are unremarkable. There are no cervical spine fractures. There is no cervical lymphadenopathy. There is mild plaque within the proximal left internal carotid artery without stenosis. There is no dissection or aneurysm within the neck. There is also mild plaque within the right carotid bifurcation without stenosis. IMPRESSION: 1. Mild atherosclerotic plaque within the proximal bilateral internal carotid arteries without stenosis. 2. No stenosis or dissection within the bilateral common carotid, cervical internal carotid or vertebral arteries. ACT 112: Negative or not required by law. Electronically signed by: James Fletcher M.D. 01/17/2024 9:53 AM Brain MRI 01/17/24 12:49 MR brain wo con CLINICAL HISTORY: L weakness, CVA eval TECHNIQUE: Multiplanar and multisequence MR images of the brain were obtained without intravenous contrast. Comparison: None available at the time of this dictation. FINDINGS: No abnormal restricted diffusion is identified. The white matter is unremarkable. The ventricular system is normal in appearance. No mass is seen. There is no mass effect or midline shift. There is no evidence of acute intraparenchymal hemorrhage. No extra axial fluid collections are seen. The corpus callosum, pituitary gland, and cerebellar tonsils appear grossly unremarkable. Flow voids of the major intracranial arterial vessels are identified. The imaged portions of the paranasal sinuses, mastoid air cells, and orbits are unremarkable. IMPRESSION: No acute abnormalities. ACT 112: Negative or not required by law. Electronically signed by: Jaspal Ruth M.D. 01/17/2024 4:57 PM Pending Results Patient Have Any Pending Studies at Discharge: Yes (hepatitis testing ) Discharge Instructions Given to Patient (Per Discharging Provider) Mrs. Jay You were hospitalized after a period of numbness on your face and down your left side of your body. Thankfully this has resolved on its own. Your head imaging including CT and MRI did not show any stroke or other acute events. It is thought that this was a TIA or "mini stroke "episode. The treatment for this is focused on primary stroke prevention for this reason we have increased your atorvastatin to 40 mg once a day and have also changed her antiplatelet therapy. You will take baby aspirin and Plavix once a day for 21 days. After the 21 days you will only take Plavix once daily, and no longer need to take a baby aspirin. Your echocardiogram (ultrasound of you heart) showed a connection between the two atria (top chambers of your heart). This also puts you at higher risk for strokes. For this, we will do a 30 day monitor to check you for abnormal heart rhythms like atrial fibrillation that would put you at higher risk for stroke. You will follow up with cardiology after this to interpret results and determine next steps. We checked your hemoglobin A1c which is a measure of your blood sugars over 90 days and this was 6.7 which is improved from your prior. However there are medications that treat diabetes and are also helpful to prevent coronary artery disease and strokes, we will defer changes to your diabetic regimen to your primary care provider. Continue smoking sensation. Your liver tests are improving but you should continue follow-up for that with your primary care provider as well I have attached a handout with information regarding TIAs. Medications: Your medication list has been reviewed and reconciled upon discharge to ensure accuracy and continuity of care. An updated list of all your medications is included with your hospital discharge paperwork. Please review this list closely, and make note of any changes. Take your medications as instructed; do not skip a dose of your medicines. Make sure all of your doctors know every medicine you are taking (including [id number] medicines, vitamins, and supplements). Call your primary care provider before taking any new medicines (including over- the-counter medicines, vitamins, and supplements), because some of these may interact with your current medications, or may make your symptoms worse. Tell your primary care provider if you cannot afford your medications. Activity: You can do normal everyday activities as your body allows. Take rest breaks if you feel tired. Do not overexert. Stop activity if you have pain, shortness of breath or feel dizzy. Follow-up appointments: Make an appointment with your primary care physician within one week of discharge. A copy of this summary will be sent to them. Every time you see your primary care physician, or any other doctor, bring your medication list, and a list of questions. CONTACT YOUR PRIMARY CARE PROVIDER if you experience any of the following: Shortness of breath or difficulty breathing Fevers or chills Feeling tired with normal activity or experiencing dizziness or fainting Difficulty following your treatment plan, or difficulty taking medications CALL 911 OR GO TO THE EMERGENCY DEPARTMENT if you experience any of the following: Severe abdominal pain or nausea/vomiting Severe chest pain, or chest pain that radiates (moves) to your jaw or arm Sudden, severe shortness of breath or difficulty breathing - Facial droop, unilateral extremity weakness Thank you for allowing us to participate in your care. Total Time Total Time Spent Total Time Spent (In Minutes): Time spent day of discharge 35 minutes including direct patient care, medication reconciliation, documentation, review of labs and images, and coordination of care. Coding Level of Care Code 04181 INP/OBS DISCH >30 MIN Diagnoses Stroke-like symptoms R29.90 Diabetes mellitus, type 2 E11.9 Hyperlipidemia E78.5
[2024-01-18 11:25] VITALS: BP 120/80; TEMP 97.7; O2SAT 96
[2024-01-18 11:43] VITALS: PULSE 74
[2024-01-18] MEDS ORDERED: ENOXAPARIN INJ 40 MG/0.4 ML SYR SQ SCH (14:00)
[2024-01-19 10:57] LABS: Hepatitis A Antibody IgM NON-REACTIVE (NON-REACTIVE); Hepatitis B Core Antibody IgM NON-REACTIVE (NON-REACTIVE)
--- NOTE | 2024-01-21 09:47 | Pharmacy Report ---
Pharmacist Stroke Counseling - Date of Service January 21, 2024 - Scope: Pharmacy has been consulted to provide medication discharge counseling for this patient admitted with transient ischemic attack as per the Pharmacist Discharge Counseling for Stroke Patients Protocol. - Medications on Discharge: Home Medications Medication Instructions Recorded Confirmed cholecalciferol (vitamin D3) 50 4,000 unit PO HS 06/14/20 01/17/24 mcg (2,000 unit) tablet ascorbic acid (vitamin C) 1 tab PO DAILY 11/01/22 01/17/24 zinc acetate 1 tab PO DAILY 11/22/22 01/17/24 aspirin 81 mg tablet 81 mg PO HS 12/28/22 01/17/24 loratadine 10 mg tablet (Claritin) 10 mg PO DAILY 07/12/23 01/17/24 metformin 500 mg tablet 500 mg PO DAILY 01/17/24 01/17/24 New Rx's Medication Instructions Recorded atorvastatin 40 mg tablet 40 mg PO QAM 30 days #30 tabs 01/18/24 clopidogrel 75 mg tablet 75 mg PO QAM 30 days #30 tabs 01/18/24 - Action: The above medications, specifically ones for stroke treatment/prophylaxis, have been reviewed in detail with the patient and/or patient patient support representative(s) prior to discharge. This includes indication, common adverse reactions, drug interactions, and medication administration. Medication counseling has been employed using the teach-back method to ensure understanding. - Outcome: The patient and/or patient patient support representative(s) have demonstrated understanding of the medications. Thank you for allowing pharmacy to be involved in the care of this patient. Please call [phone] with any additional questions
== END 2024-01-18 12:17 | disposition home or self-care (01) ==
LOC: 2W 08:07 → ED 08:07 → SUATTDRO 11:11 → 2W 12:22

== ENCOUNTER 2025-01-07 14:34 | Observation (INO) ==
--- NOTE | 2025-01-07 14:44 | Emergency Department Note ---
Impression & Plan Back pain, Ambulatory dysfunction ED Provider Note NAME: tanvir hobbs AGE: 64 SEX: F : 1960 ARRIVES VIA: Ambulance INFORMANT: Patient ED PROVIDER(S): Biju Tellez DO CHIEF COMPLAINT: Back pain HPI: Patient is a 64-year-old female who follows with pain management for chronic back pain who presents to the ER for severe left lower back pain. She notes the symptoms started this morning around 6 while she was getting a shower. She did not twist, turn, or lift. She notes the pain is focal in her left lower back. Does not radiate down her legs. She notes that since then she has been unable to move. Denies any headache or change in vision. No chest pain or shortness of breath. No weakness or numbness in the legs. ADDITIONAL HISTORY OBTAINED: Per HPI Chronic Medical/Social Conditions Affecting Care: Per HPI PAST MEDICAL HISTORY:See Below PAST SURGICAL HISTORY:See Below FAMILY HISTORY:See Below SOCIAL HISTORY:See Below HOME MEDICATIONS:See Below ALLERGIES:See Below VITALS:See Below PHYSICAL EXAMINATION: GENERAL: Sitting up in bed, alert, well appearing, well nourished, no distress, non-toxic EYE EXAM: normal conjunctiva. OROPHARYNX: no exudate, no erythema, lips, buccal mucosa, and tongue normal and mucous membranes are moist NECK: supple, no nuchal rigidity, no adenopathy, non-tender LUNGS: Clear to auscultation. Normal chest wall mechanics HEART: no murmurs, S1 normal and S2 normal ABDOMEN: abdomen soft, non-tender, normo-active bowel sounds, no masses, no rebound or guarding. BACK: Back is symmetrical on inspection and there is no deformity, no midline tenderness, tenderness in the lower lumbar paraspinal region tracking into the SI joint UPPER EXTREMITIES: upper extremities are grossly normal. LOWER EXTREMITIES: Flexion and extension of the hips, knees, ankles, and EHL 5/5 bilaterally. Gross sensation is intact. DPs are 2/4 bilateral. Patellar and Achilles reflexes are 2/4 bilateral NEURO EXAM: Normal sensorium, cranial nerves II-XII grossly intact, normal speech, no gross weakness of arms, no gross weakness of legs. MEDICAL DECISION MAKING: Patient is a 64-year-old female who presents ER for severe back pain. IV was established and blood work was obtained. Labs showed no significant leukocytosis or anemia. BMP with LFTs bilirubin and lipase was remarkable for slightly elevated lipase at 101. Nothing consistent with pancreatitis. Pain is in the back. No signs of cauda equina. X-rays were unremarkable. She was given IV Toradol, IV Tylenol, and several dose of IV narcotics. She still unable to roll in bed. Discussed case with the hospitalist for further evaluation management and treatment. Consults/Care Managements Discussions: Per MDM Triage Nursing notes reviewed. Limited review of prior medical records performed Vital Signs: reviewed and remarkable for no significant abnormalities Differential diagnosis: Musculoskeletal, disc herniation, fracture, metastatic disease, cord compression, discitis, sciatica, cauda equina, infection, aortic disease, renal colic, gastrointestinal, as well as other pathologies. ER treatment provided: See below Diagnostics interpreted by me include EKG and cardiac monitoring as listed below: -Cardiac Monitoring: An order was placed for continuous cardiac monitoring. The monitor shows a rate of 85 with sinus rhythm. -ECG: none -Laboratory studies:Interpreted by me as stated above in MDM and shown below. Imaging studies: Xrays: As interpreted by me: X-rays and lumbar spine showed no acute fracture or dislocation CTs show: none Procedures:none Critical Care: None Past Med/Surg History Problem List (Updated 01/07/25 @ 16:31 by Biju Tellez DO) Ambulatory dysfunction (Acute) Back pain (Acute) Lumbar radiculopathy (Acute) Social History Smoking Status: Never smoker Preferred Language: Azerbaijani Feels Safe at Home: Yes Allergies Allergies Allergy/AdvReac Type Severity Reaction Status Date / Time diphenhydramine Allergy Hallucinati Verified 01/07/25 14:47 [From Benrosamarial] Home Meds Home Medications Medication Instructions Recorded Confirmed atorvastatin 40 mg tablet 40 mg PO QAM 01/07/25 01/07/25 clopidogrel 75 mg tablet 75 mg PO QAM 01/07/25 01/07/25 fluticasone propionate 50 2 spray intranasal DAILY PRN Nasal 01/07/25 01/07/25 mcg/actuation nasal Congestion spray,suspension metformin 500 mg tablet 500 mg PO HS 01/07/25 01/07/25 Results & Data (ED) Vital Signs Vital Signs - 24 hr 01/07/25 14:36 01/07/25 14:42 01/07/25 14:48 Temperature 36.9 C Temperature Source Oral Pulse Rate 85 85 Pulse Rate from SpO2 Sensor Respiratory Rate 26 H Blood Pressure 132/92 Blood Pressure Mean 105 Pulse Oximetry 96 98 Oxygen Delivery Method Room Air Room Air Sepsis Recent Fever Within 48 Hours No Sepsis New/Unexplained Change in Mental Status No Sepsis Action Taken by Nursing No Action Required 01/07/25 15:21 Temperature Temperature Source Pulse Rate 85 Pulse Rate from SpO2 Sensor 83 Respiratory Rate 16 Blood Pressure Blood Pressure Mean Pulse Oximetry 96 Oxygen Delivery Method Sepsis Recent Fever Within 48 Hours Sepsis New/Unexplained Change in Mental Status Sepsis Action Taken by Nursing Laboratory Data 01/07/25 14:38 01/07/25 14:38 Lab Results 01/07/25 Range/Units 14:38 WBC 10.63 (4.8-10.8) K/ul RBC 4.66 (4.20-5.40) M/uL Hgb 13.8 (12.0-16.0) g/dl Hct 41.0 (37.0-47.0) % MCV 88.0 (80.0-100.0) fL MCH 29.6 (25.0-34.0) pg MCHC 33.7 (32.0-36.0) g/dL RDW Std Deviation 44.1 (36.4-46.3) fL RDW Coeff of Antonio 13.6 (11.5-14.5) % Plt Count 254 (130-400) K/uL MPV 9.1 L (9.4-12.4) fL Immature Gran % (Auto) 0.2 % Neut % (Auto) 63.0 % Lymph % (Auto) 30.5 % [place] % (Auto) 4.4 % Eos % (Auto) 1.4 % Baso % (Auto) 0.5 % Neut # (Auto) 6.70 H (1.40-6.50) K/uL Lymph # (Auto) 3.24 (1.20-3.40) K/uL [place] # (Auto) 0.47 (0.11-0.59) K/uL Eos # (Auto) 0.15 (0.00-0.50) K/uL Baso # (Auto) 0.05 (0.00-0.20) K/uL Immature Gran # (Auto) 0.02 (0.01-0.20) K/uL Sodium 137 (136-145) mmol/L Potassium 4.2 (3.5-5.1) mmol/L Chloride 107 (98-107) mmol/L Carbon Dioxide 24 (21-32) mmol/L Anion Gap 6 (3-11) BUN 13 (6-23) mg/dl Creatinine 0.50 L (0.6-1.2) mg/dl Est Cr Clr Drug Dosing 138.6 ml/min eGFR 105.98 BUN/Creatinine Ratio 26.0 H (10-20) Glucose 129 H (70-99(Fasting)) mg/dl Calcium 9.3 (8.6-10.3) mg/dl Total Bilirubin 0.6 (0.2-1.0) mg/dl AST 15 (13-39) U/L ALT 26 (7-52) U/L Alkaline Phosphatase 50 (34-104) U/L Total Protein 7.0 (6.0-8.3) gm/dl Albumin 4.2 (3.4-5.0) gm/dl Globulin 2.8 (2.5-4.0) gm/dl Albumin/Globulin Ratio 1.5 (0.9-2) Lipase 101 H (11-82) U/L Administered Medications Discontinued Medications Acetaminophen (Ofirmev) 1,000 mg in 100 mls @ 400 mls/hr IV NOW STA Stop: 01/07/25 15:52 Last Admin: 01/07/25 15:55 Dose: 400 mls/hr Documented By: SARWAT Ketorolac Tromethamine (Ketorolac Tromethamine 15 Mg/Ml Vial) 10 mg IV NOW ONE Stop: 01/07/25 15:39 Last Admin: 01/07/25 15:56 Dose: 10 mg Documented By: SARWAT Morphine Sulfate (Morphine Sulfate 4 Mg/Ml 1 Ml Carp\Vial) 4 mg IV NOW STA Stop: 01/07/25 14:43 Last Admin: 01/07/25 14:51 Dose: 4 mg Documented By: SARWAT Morphine Sulfate (Morphine Sulfate 4 Mg/Ml 1 Ml Carp\Vial) 4 mg IV NOW STA Stop: 01/07/25 15:39 Last Admin: 01/07/25 15:56 Dose: 4 mg Documented By: SARWAT Ondansetron HCl (Ondansetron Inj 2 Mg/Ml 2 Ml Vial) 4 mg IV NOW STA Stop: 01/07/25 14:43 Last Admin: 01/07/25 14:51 Dose: 4 mg Documented By: SARWAT Imaging Data Radiologist's Impression: Lumbar Spine X-Ray 01/07/25 14:42 XR lumbar spine 2-3V CLINICAL HISTORY: severe back pain COMPARISON STUDY: No previous studies for comparison. FINDINGS: There is a thoracolumbar dextroscoliosis. Bones are osteopenic. No acute fractures are visualized. There are multilevel degenerative changes with lateral osteophytic spurring. Incidental note is made of surgical clips in the right upper quadrant. There is scattered stool within the colon IMPRESSION: 1. Degenerative change 2. No acute fractures or subluxations identified 3. Scoliosis ACT 112: Negative or not required by law. Electronically signed by: Gilbert Jiang M.D. 01/07/2025 3:15 PM Discharge Plan Visit Data Chief Complaint: Back Injury/Pain Stated Complaint: BACK PAIN ED Provider: Biju Tellez Discharge Problem: Lumbar radiculopathy, Back pain, Ambulatory dysfunction Prescriptions Prescriptions: No Action atorvastatin 40 mg tablet 40 mg PO QAM metformin 500 mg tablet 500 mg PO HS clopidogrel 75 mg tablet 75 mg PO QAM fluticasone propionate 50 mcg/actuation spray,suspension 2 spray INTRANASAL DAILY PRN (Reason: Nasal Congestion) Discharge Problem: Back pain Qualifiers: Back pain location: low back pain Chronicity: acute Back pain laterality: u nspecified Sciatica presence: unspecified whether sciatica present Qualified Code(s): M54.50 - Low back pain, unspecified
[2025-01-07] MEDS: MoRPHine SULFATE 4 MG/ML 1 ML CARP\\VIAL IV STA ×2 (14:51→15:56)
[2025-01-07] MEDS: ONDANSETRON INJ 2 MG/ML 2 ML VIAL IV STA (14:51)
[2025-01-07 15:05] LABS: Hematocrit (blood only) 41.0 % (37.0-47.0); Hemoglobin 13.8 g/dl (12.0-16.0); Immature Granulocytes # (auto) 0.02 K/uL (0.01-0.20); Immature Granulocytes % (auto) 0.2 %; Mean Corpuscular Hemoglobin 29.6 pg (25.0-34.0); Mean Corpuscular Volume 88.0 fL (80.0-100.0); Platelet Count 254 K/uL (130-400); RDW Standard Deviation 44.1 fL (36.4-46.3); Red Blood Count 4.66 M/uL (4.20-5.40); White Blood Count 10.63 K/ul (4.8-10.8)
--- NOTE | 2025-01-07 15:16 | XRay Report ---
XR lumbar spine 2-3V CLINICAL HISTORY: severe back pain COMPARISON STUDY: No previous studies for comparison. FINDINGS: There is a thoracolumbar dextroscoliosis. Bones are osteopenic. No acute fractures are visu alized. There are multilevel degenerative changes with lateral osteophytic spurring. Incidental note is made of surgical clips in the right upper quadrant. There is scattered stool within the colon IMPRESSION: 1. Degenerative change 2. No acute fractures or subluxations identified 3. Scoliosis ACT 112: Negative or not required by law. Electronically signed by: Gilbert Jiang M.D. 01/07/2025 3:15 PM
[2025-01-07 15:24] LABS: Alanine Aminotransferase 26.0 U/L (7-52); Albumin Globulin Ratio 1.5 (0.9-2); Alkaline Phosphatase 50.0 U/L (34-104); Anion Gap 6.0 (3-11); Bilirubin,Total 0.6 mg/dl (0.2-1.0); Blood Urea Nitrogen 13.0 mg/dl (6-23); Calcium 9.3 mg/dl (8.6-10.3); Carbon Dioxide 24.0 mmol/L (21-32); Chloride 107.0 mmol/L (98-107); Creatinine Clr Calc Pharmacy 138.6 ml/min; Globulin 2.8 gm/dl (2.5-4.0); Glucose 129.0 mg/dl (70-99(Fasting)); Lipase 101.0 U/L (11-82); Potassium 4.2 mmol/L (3.5-5.1); Sodium 137.0 mmol/L (136-145); Total Protein 7.0 gm/dl (6.0-8.3)
[2025-01-07] MEDS: ACETAMINOPHEN 1,000 MG/100 ML VIAL IV STA (15:55)
[2025-01-07] MEDS: KETOROLAC TROMETHAMINE 15 MG/ML VIAL IV ONE (15:56)
--- NOTE | 2025-01-07 15:56 | History & Physical Report ---
"Date of Service January 07, 2025 Assessment & Plan (1) History of TIA (transient ischemic attack): (2) Acute low back pain: (3) Ambulatory dysfunction: (4) Diabetes mellitus, type 2: Plan Alyssa is a 64-year-old female with a past medical history of ankylosing spondylitis, diabetes mellitus type 2, hyperlipidemia, hepatic steatosis, osteopenia, history of TIA, interatrial cardiac shunt and vitamin D deficiency and chronic low back pain who presents with intractable back pain. *Of note, patient has been seen in the [facility] previously new chart was made in error at time of registration for admission* #Low back pain - lumbar x-ray shows multilevel degenerative changes with lateral osteophyte lytic spurring. Patient does follow with pain management and was scheduled for injection 01/15 Lumbar spine MRI ordered No red flag symptoms Pain control: Scheduled Tylenol, lidocaine patch. as needed Flexeril, prn Tramadol and prn morphine. heat and ice as needed Scheduled miralax consideration of steroids but do not want to delay an injection, will monitor pain control and await MRI results #HLD | history of TIA Continue atorvastatin Plavix being held in the outpatient setting for possible upcoming pain ma nagement injection, will continue to hold #Diabetes type 2 Home regimen metformin 500 mg daily - HELD Sliding scale insulin with correction factor only with steroid use dispo: obs med/surg DVT prophylaxis: Low risk, encourage ambulation. Consider chemical prophylaxis if prolonged stay History of Present Illness Chief Complaint: back pain Primary Care Provider: Selena Combs DO Alyssa is a 64-year-old female with a past medical history of ankylosing spondylitis, diabetes mellitus type 2, hyperlipidemia, hepatic steatosis, osteopenia, history of TIA, interatrial cardiac shunt and vitamin D deficiency and chronic low back pain who presents with intractable back pain. Reports that she was getting out of the shower and pain spiked has not been able to move well since. was taking ibuprofen at home and reports being miserable. Did attempt to take 2 Flexeril without relief. No urinary or bowel incontinence. No fevers or chills. No inciting injury during the shower she was just washing her hair, did not feel a pop. Normally her back pain is pretty tolerable and she is still able to participate in her activities of daily living, does not require cane or walker for mobilization Allergies Allergy/AdvReac Type Severity Reaction Status Date / Time diphenhydramine Allergy Severe ITCHING Verified 01/08/25 07:32 Home Medications Medication Instructions Recorded Confirmed Type loratadine 10 mg tablet (Claritin) 10 mg PO HS 07/12/23 11/18/24 History atorvastatin 40 mg tablet 40 mg PO QAM #90 tabs 03/25/24 11/18/24 Rx clopidogrel 75 mg tablet 75 mg PO QAM #90 tabs 03/25/24 11/18/24 Rx ibuprofen 200 mg tablet 400 mg PO BID PRN Pain 05/20/24 11/18/24 History blood sugar diagnostic (OneTouch #100 ea 08/01/24 11/18/24 Rx Ultra Test strips) blood-glucose meter (Blood Glucose #1 ea 08/01/24 11/18/24 Rx Monitoring kit) cholecalciferol (vitamin D3) 125 10,000 unit PO DAILY 08/01/24 11/18/24 History mcg (5,000 unit) capsule fluticasone propionate 50 2 spray intranasal DAILY PRN nasal 08/29/24 11/18/24 Rx mcg/actuation nasal congestion #16 grams spray,suspension (Flonase Allergy Relief) metformin 500 mg tablet 500 mg PO HS #90 tabs 10/15/24 11/18/24 Rx atorvastatin 40 mg tablet 40 mg PO QAM 01/07/25 01/07/25 History clopidogrel 75 mg tablet 75 mg PO QAM 01/07/25 01/07/25 History cyclobenzaprine 5 mg tablet 5 mg PO TID PRN Muscle Spasm 01/07/25 01/07/25 History fluticasone propionate 50 2 spray intranasal DAILY PRN Nasal 01/07/25 01/07/25 History mcg/actuation nasal Congestion spray,suspension metformin 500 mg tablet 500 mg PO HS 01/07/25 01/07/25 History Past Med/Surg History Problem List (Updated 01/08/25 @ 11:42 by Ree Cleveland MD) Acute low back pain Diabetes History of TIA (transient ischemic attack) Ambulatory dysfunction (Acute) Back pain (Acute) Lumbar radiculopathy (Acute) Protrusion of lumbar intervertebral disc Encounter for interrogation of cardiac recorder Vitamin D deficiency Hyperlipidemia Diabetes mellitus, type 2 PSVT (paroxysmal supraventricular tachycardia) History of TIA (transient ischemic attack) (01/2024) Interatrial cardiac shunt Family history of coronary artery disease Rotator cuff tear, right Impingement syndrome of right shoulder Rotator cuff arthropathy History of colon polyps Chronic pain syndrome (Acute) GERD without esophagitis Osteoarthritis (Acute) Osteopenia (Chronic) Hepatic steatosis (Chronic) IBS (irritable bowel syndrome) (Chronic) Metabolic syndrome (Chronic) Spondyloarthropathy (Chronic) Ankylosing spondylitis (Chronic) Pustular psoriasis Medical History Situational anxiety Interatrial cardiac shunt [facility] 01/2024>followed by [facility] GERD (gastroesophageal reflux disease) History of stomach ulcers History of anxiety Peripheral neuropathy TIA (transient ischemic attack) 01/2024>reason for plavix (symptoms resolved) Hx of diverticulitis of colon Seasonal allergies Degenerative disc disease Chronic back pain Hiatal hernia NSAID long-term use Lumbar radiculopathy Rheumatoid arthritis Surgical History [place] teeth removed History of esophagogastroduodenoscopy (EGD) History of colonoscopy History of cryosurgery cervix Hx laparoscopic cholecystectomy 2005 in [place] S/P appendectomy 2009 Dr. Rudi Cotto Family History Mother Diabetes Coronary heart disease Afib Anxiety and depression Hx of CABG, Onset Age: 62 IBS (irritable bowel syndrome) Aunt Ovarian cancer Malignant neoplasm of uterus Father Colon cancer Aunt Breast cancer Brother Myocardial infarction S/P coronary artery stent placement Brother Myocardial infarction Other No family history of adverse response to anesthesia Denies family history of Prostate cancer Lung cancer Social History Smoking Status: Never smoker Tobacco Type: Cigarettes Age Started Using Tobacco: 23; Age Quit Using Tobacco: 51; packs per day: 0.5; Cigarettes Per Day: 2019; Second Hand Exposure: No; Do You Dip or Chew Tobacco: No; Hx Alcohol Use: No Hx Substance Use: No Preferred Language: Albanian Communication Ability: Effective Visual Impairment: No Limitations Hearing Ability: Normal Air Bag Builder Required: No Beliefs That Will Affect Care: None marital status: Single Current Living Situation: Family Current Living Situation Comment: 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 current occupational status: employed current occupation: [employer] How many Children do You have: 1 Feels Safe at Home: Yes Safety Concerns: Feels Safe At This Time Childhood Exposure to Second-Hand Smoke: No Diet: regular Diet Comment: regular caffeine: Yes during the past year weight has: remained stable Dental Care, Regularly: Yes Physical Activity Frequency: Daily Seatbelt Use: always Sunscreen Use: Yes Assistive Devices: Glasses Assistive Devices Comment: reading glasses Review of Systems Review of Systems: All systems reviewed & are unremarkable except as noted in Subjective Physical Exam Physical Exam: General: NAD, VS as above, appears rather uncomfortable, constantly moving in the bed. Resp: normal respiratory effort, lungs clear to auscultation CV: RRR, no murmur, Back: No spinal tenderness, no skin changes or signs of injury. Significant paraspinal tenderness on the left side near L3-5. no saddle anesthesia. Left leg strength is decreased and lifting against resistance causes significant pain Extremities: Moves all extremities, no edema Neuro: A&O x3, Results & Data Results & Data Vital Signs (Past 12 Hours) Vital Signs Temp Pulse Resp BP Pulse Ox O2 Del Method 01/07/25 15:21 85 16 96 01/07/25 14:48 85 01/07/25 14:42 98 Room Air 01/07/25 14:36 98.4 F 85 26 H 132/92 96 Room Air Laboratory Results CBC and chemistry reviewed Diagnostic Findings lumbar x-ray reviewed Supervising Physician Co-Signing Physician Notes I have reviewed vital signs, chart notes, labs and imaging, confirmed the varghese points of history and physical. I have also discussed the management of the patient with the RISHI and I agree with the exam findings documented in the history and physical examination and the documented assessment and plan unless otherwise stated below. PG Care Time/CCT Total # of Minutes Spent Total Time Spent with Patient: Total time spent is greater than 50% in coordination of care (as documented) at patient's floor/unit and/or counseling patient: Coding Level of Care Code 16875 INT INP/OBS CARE 3/75MIN Diagnoses History of TIA (transient ischemic attack) Z86.73 Acute low back pain M54.50 Ambulatory dysfunction R26.2 Diabetes mellitus, type 2 E11.9"
[2025-01-07] MEDS ORDERED: GLUCOSE 40% GEL 15 GM TUBE PO PRN (16:53)
[2025-01-07] MEDS ORDERED: GLUCOSE 10 TAB/TUBE PO PRN (16:53)
[2025-01-07] MEDS ORDERED: MELATONIN 3 MG TAB PO PRN (16:53)
[2025-01-07] MEDS ORDERED: MoRPHine SULFATE 2 MG/ML CARP IV PRN (16:53)
[2025-01-07] MEDS ORDERED: GLUCAGON FOR INJ 1 MG VIAL SQ PRN (16:53)
[2025-01-07] MEDS ORDERED: DEXTROSE 50% 50 ML SYRINGE IV PRN (16:53)
[2025-01-07] MEDS ORDERED: CARBOHYDRATES FOR HYPOGLYCEMIA PO PRN (16:53)
--- NOTE | 2025-01-07 20:06 | Magnetic Resonance Report ---
MRI LUBMAR SPINE WITHOUT CONTRAST TECHNIQUE: An MRI examination of the cervical spine was performed. The examination consists of sagittal T1-weighted, inversion recovery and T2 weighted images as well as axial T1-weighted, T2-weighted and gradient echo images. INDICATION: Neck pain COMPARISON: FINDINGS: No significant vertebral body height loss. No significant spondylolisthesis. There is an osseous marrow signal in the left anterior aspect of L3 vertebral body along the superior endplate. There is surrounding soft tissue edema. There is a probable atypical intraosseous hemangioma in L1 vertebral body, measuring 1.2 cm in size. The conus terminates at L1. There are multilevel degenerative changes of the lumbar spine as below: L1-2: Mild disc bulge, bilateral facet hypertrophy and thickening of the ligamentum flavum. These results in no appreciable spinal canal or neural foraminal narrowing. L2-3: Broad-based disc bulge, bilateral facet hypertrophy and thickening of the ligamentum flavum. These changes resulting in mild crowding of the subarticular recesses and mild narrowing of the neural foramina. L3-4: Broad-based disc bulge that is more eccentric to the left, bilateral facet hypertrophy and thickening of the ligamentum flavum. These changes resulting in mild crowding of the subarticular recesses. Mild right and moderate left neural foraminal narrowing. The left exiting nerve appears to be impinged extraforaminally L4-5: Broad-based disc bulge that is more eccentric to the left, bilateral facet hypertrophy and thickening of the ligamentum flavum. These changes resulting in mild crowding of the subarticular recesses. Mild right and moderate left neural foraminal narrowing. The left exiting nerve appears to be impinged extraforaminally L5-S1: Broad-based disc bulge that is more eccentric to the right, bilateral facet hypertrophy and thickening of the ligamentum flavum. These changes resulting in mild crowding of the subarticular recesses. Severe right and mild left neural foraminal narrowing. The right exiting nerve is impinged IMPRESSION: Osseous marrow signal in the left anterior aspect of L3 vertebral body along the superior endplate with surrounding soft tissue edema. Please correlate with site of pain. This may represent a bony contusion with surrounding ligamentous injury possibly from strain. Advanced multilevel degenerative changes of the lumbar spine as above. Electronically signed by Jn Marroquin 01-07-2025 8:06 PM
[2025-01-07] MEDS: MoRPHine SULFATE 4 MG/ML 1 ML CARP\\VIAL IV PRN (20:08)
[2025-01-07] MEDS: ONDANSETRON INJ 2 MG/ML 2 ML VIAL IV PRN (20:32)
[2025-01-07] MEDS: INSULIN ASPART PER UNIT CHARGE SC SCH (20:55)
[2025-01-07] MEDS: LIDOCAINE 5% 1 PATCH TD SCH (20:57)
[2025-01-07] MEDS: REMOVE LIDODERM PATCH SCH (20:57)
[2025-01-07] MEDS: ACETAMINOPHEN 500 MG TAB PO SCH (22:09)
[2025-01-08] MEDS: CYCLOBENZAPRINE HCL 5 MG TAB PO PRN (00:03)
[2025-01-08] MEDS: POLYETHYLENE (MIRALAX) 17 GM PACK PO SCH (08:53)
[2025-01-08] MEDS: ATORVASTATIN 40 MG TAB PO SCH (08:54)
--- NOTE | 2025-01-08 11:55 | Hospitalist Progress Note ---
"Date of Service January 08, 2025 Assessment & Plan (1) Acute low back pain: (2) Ambulatory dysfunction: (3) History of TIA (transient ischemic attack): (4) Diabetes mellitus, type 2: Plan Alyssa is a 64-year-old female with a past medical history of ankylosing spondylitis, diabetes mellitus type 2, hyperlipidemia, hepatic steatosis, osteopenia, history of TIA, interatrial cardiac shunt and vitamin D deficiency and chronic low back pain who presents with acute intractable back pain. #Acute on chronic low back pain, ambulatory dysfunction related to this She does have known severe degenerative disease and follows with pain management and is scheduled for injection 01/15 for her chronic back pain. Does not have radicular symptoms. Diagnosed with Anklyosing Spondylitis in the past and some time ago was on humira then methotrexate but no immune modulating treatments recently, per Dr. Scott's last note no evidence of active spondylitis. Lumbar spine MRI reviewed - multilevel severe foraminal stenoses related to disc bulges especially on L. New finding of L3 marrow signal and surrounding soft tissue edema, radiologist thinks this appears to be a bony contusion with associated ligamentous injury. Seems unusual because there was no acute injury. Had WBC 15-->10 today which was probably stress demargination, no fevers, no infectious risk factors other than mild diabetes. Recent escalation of plantar charley horses at rest. No leg weakness or other neurological symptoms. Improving with pain control. -continue Scheduled Tylenol, lidocaine patch. as needed Flexeril, prn Tramadol and try to change opioid over to oral oxycodone. heat and ice as needed -check CRP and ESR -PT and OT evaluation -consulted ortho spine Dr. Peter #HLD | history of TIA Continue atorvastatin Plavix being held in the outpatient setting for possible upcoming pain management injection, will continue to hold #Diabetes type 2 Home regimen metformin 500 mg daily - HELD Sliding scale insulin with correction factor only with steroid use DVT prophylaxis: start enoxaparin Admission and Anticipated Discharge Date Admission Date: January 07, 2025 Subjective Mid low back pain still significant but much improved compared to yesterday in the ED. One dose of IV morphine last night and again early AM Has been able to get up to bathroom with walker, needed assistance per nursing not overnight Has some chronic intermittent numbness of toes unchanged. No bowel/bladder symptoms, no LE weakness, no fevers. Had a few sweats in ED last night she thinks related to morphine. No trauma like fall, heavy lifting, twisting etc. Acute pain came on when she was standing in shower washing her hair. Only new recent symptom is increased severe plantar charley horses, which occur at night/at rest, for past 2-3 weeks. No hardware / implants / joint replacements etc except loop recorder. No recent infections past months. Physical Exam 2 Physical Exam: Last 24h vitals reviewed GEN: no acute distress, lying pretty flat in bed HEENT: pupils equal, sclerae anicteric, moist MM RESP: normal WOB, CTAB CV: reg no mrg ABD: ND : no jimenez SKIN: warm and dry, no generalized rashes NEURO: AOx person, place, and situation. Face symmetric, speech normal, moves 4 ext spontaneously and equally LE distal strength bilaterally 5/5. Can lift both heels off the bed, some inhibition by pain on L but does not seem weak. Sensation intact to LT both LE. Results & Data Results & Data Vital Signs (Past 12 Hours) Vital Signs Temp Pulse Resp BP Pulse Ox O2 Del Method 01/08/25 07:27 36.4 C L 83 20 106/71 93 Room Air Laboratory Results 01/07/25 14:38 01/07/25 14:38 PG Care Time/CCT Total # of Minutes Spent Total Time Spent with Patient: Total time spent is greater than 50% in coordination of care (as documented) at patient's floor/unit and/or counseling patient: Coding Level of Care Code 69787 SUB INP/OBS CARE 3/50MIN Diagnoses Acute low back pain M54.50 Ambulatory dysfunction R26.2 History of TIA (transient ischemic attack) Z86.73 Diabetes mellitus, type 2 E11.9"
[2025-01-09 11:11] VITALS: BP 102/68; PULSE 75; RESP 16; TEMP 98.1; O2SAT 93
--- NOTE | 2025-01-09 13:26 | Discharge Summary ---
"Discharge Summary Date of Service January 09, 2025 Principal Dx & Hospital Course #1 = Principal Diagnosis (1) Acute low back pain: (2) Ambulatory dysfunction: (3) History of TIA (transient ischemic attack): (4) Diabetes mellitus, type 2: Aileen Shah is a 64-year-old female with a past medical history of ankylosing spondylitis, diabetes mellitus type 2, hyperlipidemia, hepatic steatosis, osteopenia, history of TIA, interatrial cardiac shunt and vitamin D deficiency and chronic low back pain who presents with acute intractable back pain. #Acute on chronic low back pain, ambulatory dysfunction related to this She does have known severe degenerative disease and follows with pain management and is scheduled for injection 01/15 for her chronic back pain. Does not have radicular symptoms. Diagnosed with Anklyosing Spondylitis in the past and some time ago was on humira then methotrexate but no immune modulating treatments recently, per Dr. Scott's last note no evidence of active spondylitis. Lumbar spine MRI this admission - multilevel severe foraminal stenoses related to disc bulges especially on L. New finding of L3 marrow signal and surrounding soft tissue edema, radiologist thinks this appears to be a bony contusion with associated ligamentous injury. Seems unusual because there was no acute injury. Had WBC 15-->10 which was probably stress demargination, no fevers, no inf ectious risk factors other than mild diabetes. Recent escalation of plantar charley horses at rest. No leg weakness or other neurological symptoms. Improving with pain control. -continue Scheduled Tylenol, lidocaine patch. as needed Flexeril, oral oxycodone. heat and ice as needed -CRP and ESR were both normal / low -PT and OT evaluation - cleared for home -consulted ortho spine Dr. Peter regarding L3 MRI finding - he reviewed MRI and examined patient - recommended continued interventional pain management, ok for discharge home, avoid heavy activity lifting/twisting until acute strain resolved -much improved and able to discharge home #HLD | history of TIA Continue atorvastatin Plavix being held in the outpatient setting for possible upcoming pain cabrera gement injection, will continue to hold #Diabetes type 2 Home regimen metformin 500 mg daily - continue Notes For Next Care Provider Acute on chronic back pain, L3 contusion/strain on top of preexisting degenerative disease Improved with rest, pain control Has BLUE scheduled 01/15 Medication Changes From Visit APAP, oxycodone for acute pain Admission HPI Per Admitting Provider Alyssa is a 64-year-old female with a past medical history of ankylosing spondylitis, diabetes mellitus type 2, hyperlipidemia, hepatic steatosis, osteopenia, history of TIA, interatrial cardiac shunt and vitamin D deficiency and chronic low back pain who presents with intractable back pain. Reports that she was getting out of the shower and pain spiked has not been able to move well since. was taking ibuprofen at home and reports being miserable. Did attempt to take 2 Flexeril without relief. No urinary or bowel incontinence. No fevers or chills. No inciting injury during the shower she was just washing her hair, did not feel a pop. Normally her back pain is pretty tolerable and she is still able to participate in her activities of daily living, does not require cane or walker for mobilization Discharge Exam Last 24h vitals reviewed GEN: no acute distress, sitting in bed looks much better HEENT: pupils equal, sclerae anicteric, moist MM RESP: normal WOB, CTAB CV: reg no mrg ABD: ND : no jimenez SKIN: warm and dry, no generalized rashes NEURO: AOx person, place, and situation. Face symmetric, speech normal, moves 4 ext spontaneously and equally Discharge Plan Discharge Items Patient Disposition: Home - Self-Care Reason For Visit: INTRACTABLE BACK PAIN Discharge Diagnosis: Acute on chronic low back pain, L3 contusion Condition on Discharge: Fair Activity: Per Instructions section Lifting: No more than 5 pounds Non-emergency contact: Primary Care Provider Call non-emergency contact if: you have any medication questions and your symptoms worsen Follow-up/Referrals: Selena Cmobs DO [Primary Care Provider] - 01/14/25 8:20 am Diet: Regular Addtl Attending Provider Instructions: You were treated for acute back pain flare MRI showed inflammation at L3 level suggestive of some acute strain that explains the pain flare up. I'm not sure what triggered it, but its improving I recommend taking acetaminophen [id number] (we are using 650 mg four times a day) to give some consistent pain control Take oxycodone as needed for more severe pain. You could take 1/2 tab to 1 tab every 4 hours as needed during the day, its ok to take 2 tabs at bedtime or if your pain flares severely. Opioid pain medications can cause constipation and nausea. Do not drive while taking oxycodone. For constipation: Miralax 1 capful daily or twice a day as needed Senna tabs 1-2 tabs daily as needed -these are both safe to take alf Dulcolax 5-10 mg tab daily as needed if the above meds are ineffective Dulcolax suppository per rectum daily as needed -these are for more severe constipation and are for short term use These medications are all available over the counter at the drugstore Dr. Peter recommended taking it easy - avoiding heavy exertion / exercise for now, avoid lifting anything heavy or twisting motions Follow up as planned for your steroid injection It was a pleasure taking care of you in the hospital, Ree Cleveland MD Pending Studies at Discharge: No Stand-Alone Forms: My [facility], Pain - Opioid Pain Management, Smoking Cessation Medications and DC Order Prescriptions: New oxycodone 5 mg tablet 5 - 10 mg PO Q4H PRN (Reason: pain) Qty: 20 0RF Continued atorvastatin 40 mg tablet 40 mg PO QAM Qty: 90 3RF cholecalciferol (vitamin D3) 125 mcg (5,000 unit) capsule 10,000 unit PO DAILY (DME) OneTouch Ultra Test Strip See Rx Instructions .ROUTE .MEDSUPPLY Qty: 100 5RF Rx Instructions: Testing BS daily (DME) blood-glucose meter [Blood Glucose Monitoring] Kit See Rx Instructions .ROUTE .MEDSUPPLY Qty: 1 0RF Rx Instructions: As directed Testing BS daily. Dx: E11.9 loratadine [Claritin] 10 mg tablet 10 mg PO HS ibuprofen 200 mg Tablet 400 mg PO BID PRN (Reason: Pain) metformin 500 mg tablet 500 mg PO HS fluticasone propionate 50 mcg/actuation spray,suspension 2 spray INTRANASAL DAILY PRN (Reason: Nasal Congestion) cyclobenzaprine 5 mg tablet 5 mg PO TID PRN (Reason: Muscle Spasm) Held clopidogrel 75 mg tablet 75 mg PO QAM Hold Instructions: held until after steroid injection Discontinued clopidogrel 75 mg tablet 75 mg PO QAM Qty: 90 3RF fluticasone propionate [Flonase Allergy Relief] 50 mcg/actuation spray,suspension 2 spray intranasal DAILY PRN (Reason: nasal congestion) Qty: 16 0RF Rx Instructions: administer into each nostril metformin 500 mg tablet 500 mg PO HS Qty: 90 2RF atorvastatin 40 mg tablet 40 mg PO QAM Discharge Orders: Discharge Order (Routine); Ordered 01/09/25 Ordered By: Ree Cleveland Admission Data Admit Date/Time: 01/07/25 16:30 Attending Provider: Ree Cleveland Admit Provider: Ree Cleveland Primary Care Provider: Selena Combs. Other Providers: Ree Cleveland; Charlie Peter Other Interventions: Discharge Summary Assessment (RN) Last Done: 01/09/25 14:30 Hospital Stay Data Consultations 01/07/25 15:39 ED Decision to Admit Stat 01/08/25 11:31 Consult Orthopedic Spine Surgery Routine Diagnostic Imagining Performed 01/07/25 16:22 MRI Lumbar Spine [MR lumbar spine wo con] Urgent Pending Results Patient Have Any Pending Studies at Discharge: No Discharge Instructions Given to Patient (Per Discharging Provider) You were treated for acute back pain flare MRI showed inflammation at L3 level suggestive of some acute strain that explains the pain flare up. I'm not sure what triggered it, but its improving I recommend taking acetaminophen [id number] (we are using 650 mg four times a day) to give some consistent pain control Take oxycodone as needed for more severe pain. You could take 1/2 tab to 1 tab every 4 hours as needed during the day, its ok to take 2 tabs at bedtime or if your pain flares severely. Opioid pain medications can cause constipation and nausea. Do not drive while taking oxycodone. For constipation: Miralax 1 capful daily or twice a day as needed Senna tabs 1-2 tabs daily as needed -these are both safe to take salvage determiner Dulcolax 5-10 mg tab daily as needed if the above meds are ineffective Dulcolax suppository per rectum daily as needed -these are for more severe constipation and are for short term use These medications are all available over the counter at the drugstore Dr. Peter recommended taking it easy - avoiding heavy exertion / exercise for now, avoid lifting anything heavy or twisting motions Follow up as planned for your steroid injection It was a pleasure taking care of you in the hospital, Ree Cleveland MD Total Time Total Time Spent Total Time Spent (In Minutes): <30 Coding Level of Care Code 46912 IN/OBS DISCH 30 MIN/LESS Diagnoses Acute low back pain M54.50 Ambulatory dysfunction R26.2 History of TIA (transient ischemic attack) Z86.73 Diabetes mellitus, type 2 E11.9"
--- NOTE | 2025-01-09 14:35 | Orthopedic Consultation ---
Date of Consultation January 09, 2025 Assessment & Plan (1) Contusion of lumbar spinal region: At this time evaluation her physical exam and imaging I do not appreciate any need for surgical intervention. I will have her continue with interventional pain management. History of Present Illness Reason for Consultation: Acute back pain Attending Physician: Ree Cleveland MD History of Present Illness This a very pleasant 62-year-old female who presents with onset of acute back pain while she was in the shower yesterday. She does have a history of chronic persistent back pain as well as ankylosing spondylitis. She is managed with pain management. Today she denies any radicular complaints or leg pain. She states her back pain is improved. Allergies Allergy/AdvReac Type Severity Reaction Status Date / Time diphenhydramine Allergy Severe ITCHING Verified 01/08/25 07:32 Home Medications Medication Instructions Recorded Confirmed Type loratadine 10 mg tablet (Claritin) 10 mg PO HS 07/12/23 11/18/24 History atorvastatin 40 mg tablet 40 mg PO QAM #90 tabs 03/25/24 11/18/24 Rx ibuprofen 200 mg tablet 400 mg PO BID PRN Pain 05/20/24 11/18/24 History blood sugar diagnostic (OneTouch #100 ea 08/01/24 11/18/24 Rx Ultra Test strips) blood-glucose meter (Blood Glucose #1 ea 08/01/24 11/18/24 Rx Monitoring kit) cholecalciferol (vitamin D3) 125 10,000 unit PO DAILY 08/01/24 11/18/24 History mcg (5,000 unit) capsule clopidogrel 75 mg tablet 75 mg PO QAM 01/07/25 01/07/25 History cyclobenzaprine 5 mg tablet 5 mg PO TID PRN Muscle Spasm 01/07/25 01/07/25 Histo ry fluticasone propionate 50 2 spray intranasal DAILY PRN Nasal 01/07/25 01/07/25 History mcg/actuation nasal Congestion spray,suspension metformin 500 mg tablet 500 mg PO HS 01/07/25 01/07/25 History oxycodone 5 mg tablet 5 - 10 mg (1 - 2 x 5 mg) PO Q4H 01/09/25 Rx PRN pain #20 tabs Patient History Medical History Situational anxiety Interatrial cardiac shunt echo at [facility] 01/2024>followed by [facility] GERD (gastroesophageal reflux disease) History of stomach ulcers History of anxiety Peripheral neuropathy TIA (transient ischemic attack) 01/2024>reason for plavix (symptoms resolved) Hx of diverticulitis of colon Seasonal allergies Degenerative disc disease Chronic back pain Hiatal hernia NSAID long-term use Lumbar radiculopathy Rheumatoid arthritis Surgical History Steward teeth removed History of esophagogastroduodenoscopy (EGD) History of colonoscopy History of cryosurgery cervix Hx laparoscopic cholecystectomy 2005 in [place] S/P appendectomy 2009 Dr. Rudi Cotto Family History Mother Diabetes Coronary heart disease Afib Anxiety and depression Hx of CABG, Onset Age: 60 IBS (irritable bowel syndrome) Aunt Ovarian cancer Malignant neoplasm of uterus Father Colon cancer Aunt Breast cancer Brother Myocardial infarction S/P coronary artery stent placement Brother Myocardial infarction Other No family history of adverse response to anesthesia Denies family history of Prostate cancer Lung cancer Social History Smoking Status: Never smoker Tobacco Type: Cigarettes Age Started Using Tobacco: 23; Age Quit Using Tobacco: 51; packs per day: 0.5; Cigarettes Per Day: 2019; Second Hand Exposure: No; Do You Dip or Chew Tobacco: No; Hx Alcohol Use: No Hx Substance Use: No Preferred Language: Latvian Communication Ability: Effective Visual Impairment: No Limitations Hearing Ability: Normal 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 Supervisor Required: No Beliefs That Will Affect Care: None marital status: Single Current Living Situation: Family Current Living Situation Comment: 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 Appears comfortable. She is tolerating physical therapy. Results & Data Vital Signs (Past 12 Hours) Vital Signs Temp Pulse Resp BP Pulse Ox O2 Del Method 01/09/25 11:08 36.7 C 75 16 102/68 93 Room Air 01/09/25 07:27 36.6 C 70 18 120/75 94 Room Air
== END 2025-01-09 15:20 | disposition home or self-care (01) ==
LOC: ED 14:34 → EDINP 14:34 → MERGE 16:30 → EDINP 16:53 → 3N 19:52